=== PATIENT | female | born 1995 | race Caucasian/White ===

== ENCOUNTER 2022-11-22 16:53 | Emergency (ER) | payer OTHER, SELFPAY ==
[2022-11-22 17:10] VITALS: BP 137/81; PULSE 93; RESP 20; TEMP 37.2; O2SAT 100; BMI 42.3
--- NOTE | 2022-11-22 18:13 | ED_ITS ---
Documented by User: Gopi Abdullahi MD 11/22/22 18:16 HPI - Abdominal Pain General Chief Complaint: Abdominal Pain Stated Complaint: 19 weeks Time Seen by Provider: 11/22/22 17:17 Source: patient Mode of arrival: walk-in Limitations: no limitations History of Present Illness HPI narrative: this patient's here for evaluation of lower abdominal pain she is , she is approximately 19-1/2 weeks and is under the care of a local [employer] MAINFRAME DEVELOPER. She is not having any vaginal bleeding or spotting. She gets frequent pelvic ultrasounds because she herself has Sjogren syndrome. She has not had fever shakes or chills. She has no back pain. She has no history of ovarian cystic disease. She has another scheduled appointment in December to see her [employer] MAINFRAME DEVELOPER. She is concerned because in her last she had a urinary tract infection with possible kidney infection and never had any symptoms. Today she has no fever shakes or chills. She has no frequency urgency or dysuria, she correction says that she does have some increase in frequency. She's not seen any blood. She does not have a history kidney stone. Her discomfort is in the suprapubic area but she says it does not feel like false labor pain or labor pain at all. Related Data Allergies Allergy/AdvReac Type Severity Reaction Status Date / Time Penicillins Allergy Severe Rash Verified 11/22/22 17:17 [facility] Social History Smoking status: Never smoker Exam Narrative Exam Narrative: well-hydrated well-nourished female appears in no discomfort vital signs are stable she is afebrile. Skin is warm and dry no pallor or evidence of anemia and no diaphoresis. Respiratory she has no restaurant distress. No wheezes rales rhonchi or cou ghing. Abdomen soft and supple. No peritoneal findings. Extremities there is no edema. Constitutional Vital Signs, click to edit/add: Last Vital Signs Temp 98.9 F 11/22/22 17:10 Pulse 93 H 11/22/22 17:10 Resp 20 11/22/22 17:10 BP 137/81 H 11/22/22 17:10 Pulse Ox 100 11/22/22 17:10 Course Vital Signs Vital signs: Vital Signs Temperature 98.9 F 11/22/22 17:10 Pulse Rate 93 H 11/22/22 17:10 Respiratory Rate 20 11/22/22 17:10 Blood Pressure 137/81 H 11/22/22 17:10 Pulse Oximetry 100 11/22/22 17:10 Temperature 98.9 F 11/22/22 17:10 Pulse Rate 93 H 11/22/22 17:10 Respiratory Rate 20 11/22/22 17:10 Blood Pressure 137/81 H 11/22/22 17:10 Pulse Oximetry 100 11/22/22 17:10 MDM - Abdominal Pain MDM Narrative Medical decision making narrative: his patient's essentially here to make sure she does not have a urinary tract infection. She has had an uncomplicated intrauterine at 19-1/2 weeks. She has no vaginal bleeding or spotting. Her vital signs are essentially normal. Routine laboratory testing and a cathetered urinalysis are pending at time of this note. Lab Data Labs: Lab Results 11/22/22 11/22/22 Range/Units 18:15 18:16 WBC 7.8 (4.0-11.0) 10^3/uL RBC 4.44 (4.20-5.40) 10^6/uL Hgb 12.2 (12.0-16.0) g/dL Hct 38.1 (36.0-48.0) % MCV 85.8 (81.0-99.0) fL MCH 27.5 (26.7-34.0) pg MCHC 32.0 (29.9-35.2) g/dL RDW 14.0 (11.0-15.0) % Plt Count 224 (150-450) 10^3/uL MPV 10.8 (9.5-13.5) fL Neut % (Auto) 73.8 (43.0-75.0) % Lymph % (Auto) 18.5 L (20.5-60.0) % [place] % (Auto) 5.9 (1.7-12.0) % Eos % (Auto) 0.6 L (0.9-7.0) % Baso % (Auto) 0.4 (0.2-2.0) % Neut # (Auto) 5.8 (1.4-6.5) 10^3/uL Lymph # (Auto) 1.4 (1.2-3.8) 10^3/uL [place] # (Auto) 0.5 (0.3-0.8) 10^3/uL Eos # (Auto) 0.1 (0.0-0.7) 10^3/uL Baso # (Auto) 0.0 (0.0-0.1) 10^3/uL Abs Immat Gran (auto) 0.06 H (0.00-0.03) 10^3/uL Imm/Tot Granulo (auto) 0.8 H (0.0-0.5) % Sodium 138 (136-145) mmol/L Potassium 3.9 (3.5-5.1) mmol/L Chloride 104 (98-107) mmol/L Carbon Dioxide 25.7 (21.0-32.0) mmol/L Anion Gap 12.2 BUN 5.0 L (7.0-18.0) mg/dL Creatinine 0.61 (0.55-1.02) mg/dL Est GFR ( Amer) >60 (>=60) Est GFR (Non-Af Amer) >60 (>=60) BUN/Creatinine Ratio 8.2 Glucose 112 H (74-106) mg/dL Lactate 1.8 (0.4-2.0) mmol/L Calcium 9.1 (8.5-10.1) mg/dL Total Bilirubin 0.2 (0.2-1.0) mg/dL AST 17 (15-37) U/L ALT 24 (14-59) U/L Alkaline Phosphatase 86 (46-116) U/L Total Protein 6.9 (6.4-8.2) g/dL Albumin 3.0 L (3.4-5.0) g/dL Globulin 3.9 g/dL Albumin/Globulin Ratio 0.8 Lipase 48.0 L (73.0-393.0) U/L Urine Color Lt. yellow (YELLOW) Urine Clarity Clear (CLEAR) Urine pH 6.5 (5.0-9.0) Ur Specific [place] 1.020 (1.005-1.025) Urine Protein Negative (NEG/TRACE) mg/dL Urine Glucose (UA) Negative (NEGATIVE) mg/dL Urine Ketones Negative (NEGATIVE) mg/dL Urine Occult Blood Trace-i (NEGATIVE) Urine Nitrite Negative (NEGATIVE) Urine Bilirubin Negative (NEGATIVE) Urine Urobilinogen 0.2 (0.2-1.0) EU/dL Ur Leukocyte Esterase Negative (NEGATIVE) Urine RBC 5-10 A (0-2) #/HPF Urine WBC 2-5 A (NONE SEEN) #/HPF Ur Squamous Epith Cells Few A (NONE/RARE) #/LPF Urine Crystals None seen (None Seen) #/HPF Urine Bacteria Trace A (NONE SEEN) #/HPF Urine Casts None seen (NONE SEEN) #/LPF Urine Mucus Trace A (NONE SEEN) Ur Culture Indicated? No Discharge Plan Discharge Chief Complaint: Abdominal Pain Clinical Impression: Pelvic pain affecting in second trimester, antepartum Patient Disposition: Home, Self-Care Time of Disposition Decision: 19:52 Condition: Good Mode of Transportation: Private Vehicle Instructions: Abdominal Pain in (ED) Additional Instructions: Pelvic rest. Follow up with [employer] MAINFRAME DEVELOPER in the morning. Return to emergency department with any problems or concerns discussed. Stand Alone Forms: Portal Instructions Referrals: Physician,Non-Staff, MD [Primary Care Provider] - 1 week Documented by User: Summer Moore MD 11/22/22 20:02 HPI - Abdominal Pain General Chief Complaint: Abdominal Pain Stated Complaint: 19 weeks Time Seen by Provider: 11/22/22 17:17 Related Data Allergies Allergy/AdvReac Type Severity Reaction Status Date / Time Penicillins Allergy Severe Rash Verified 11/22/22 17:17 PFSH PFSH Social History Smoking status: Never smoker Exam Constitutional Vital Signs, click to edit/add: Last Vital Signs Temp 98.9 F 11/22/22 17:10 Pulse 93 H 11/22/22 17:10 Resp 20 11/22/22 17:10 BP 137/81 H 11/22/22 17:10 Pulse Ox 100 11/22/22 17:10 Course Vital Signs Vital signs: Vital Signs Temperature 98.9 F 11/22/22 17:10 Pulse Rate 93 H 11/22/22 17:10 Respiratory Rate 20 11/22/22 17:10 Blood Pressure 137/81 H 11/22/22 17:10 Pulse Oximetry 100 11/22/22 17:10 Temperature 98.9 F 11/22/22 17:10 Pulse Rate 93 H 11/22/22 17:10 Respiratory Rate 20 11/22/22 17:10 Blood Pressure 137/81 H 11/22/22 17:10 Pulse Oximetry 100 11/22/22 17:10 MDM - Abdominal Pain MDM Narrative Medical decision making narrative: his patient's essentially here to make sure she does not have a urinary tract infection. She has had an uncomplicated intrauterine at 19-1/2 weeks. She has no vaginal bleeding or spotting. Her vital signs are essentially normal. Routine laboratory testing and a cathetered urinalysis are pending at time of this note. Patient signed out to me by Dr. Gibbs at the end of his shift. Awaiting urinalysis results. Patient's abdomen is benign and nonsurgical. Patient was seen and evaluated by me. She does not have any vaginal bleeding, discharge. Urinalysis is unremarkable. There is no signs of infection. All results were discussed with patient. Patient advised pelvic rest, and follow-up with [employer] MAINFRAME DEVELOPER in the morning.Patient states she has been having diarrhea the last couple of days. She denies any melena, hematochezia. At this time the patient is without objective evidence of an acute process requiring hospitalization or inpatient management. The patient has remained hemodynamically stable. No additional indication for emergent studies at this time. I answered all questions. Discussed discharge instructions including stand aby anticipatory guidance and what should prompt a return to the emergency department, including if they get worse are not getting better or develops any new or concerning symptoms. I've given them specific time frame in which to follow-up, and who to follow-up with. The patient demonstrates understanding. Patient is nontoxic and stable for discharge with outpatient follow-up. This note was created with the assistance of a speech recognition program. Although the intention is to generate documents that actually reflects the content of the visit, no guarantees can be provided that every mistake has been identified and corrected by editing. Differential Diagnosis Differential diagnosis: Likely abdominal pain Lab Data Attestation: I reviewed the patient's lab results. Labs: Lab Results 11/22/22 11/22/22 Range/Units 18:15 18:16 WBC 7.8 (4.0-11.0) 10^3/uL RBC 4.44 (4.20-5.40) 10^6/uL Hgb 12.2 (12.0-16.0) g/dL Hct 38.1 (36.0-48.0) % MCV 85.8 (81.0-99.0) fL MCH 27.5 (26.7-34.0) pg MCHC 32.0 (29.9-35.2) g/dL RDW 14.0 (11.0-15.0) % Plt Count 224 (150-450) 10^3/uL MPV 10.8 (9.5-13.5) fL Neut % (Auto) 73.8 (43.0-75.0) % Lymph % (Auto) 18.5 L (20.5-60.0) % [place] % (Auto) 5.9 (1.7-12.0) % Eos % (Auto) 0.6 L (0.9-7.0) % Baso % (Auto) 0.4 (0.2-2.0) % Neut # (Auto) 5.8 (1.4-6.5) 10^3/uL Lymph # (Auto) 1.4 (1.2-3.8) 10^3/uL [place] # (Auto) 0.5 (0.3-0.8) 10^3/uL Eos # (Auto) 0.1 (0.0-0.7) 10^3/uL Baso # (Auto) 0.0 (0.0-0.1) 10^3/uL Abs Immat Gran (auto) 0.06 H (0.00-0.03) 10^3/uL Imm/Tot Granulo (auto) 0.8 H (0.0-0.5) % Sodium 138 (136-145) mmol/L Potassium 3.9 (3.5-5.1) mmol/L Chloride 104 (98-107) mmol/L Carbon Dioxide 25.7 (21.0-32.0) mmol/L Anion Gap 12.2 BUN 5.0 L (7.0-18.0) mg/dL Creatinine 0.61 (0.55-1.02) mg/dL Est GFR ( Amer) >60 (>=60) Est GFR (Non-Af Amer) >60 (>=60) BUN/Creatinine Ratio 8.2 Glucose 112 H (74-106) mg/dL Lactate 1.8 (0.4-2.0) mmol/L Calcium 9.1 (8.5-10.1) mg/dL Total Bilirubin 0.2 (0.2-1.0) mg/dL AST 17 (15-37) U/L ALT 24 (14-59) U/L Alkaline Phosphatase 86 (46-116) U/L Total Protein 6.9 (6.4-8.2) g/dL Albumin 3.0 L (3.4-5.0) g/dL Globulin 3.9 g/dL Albumin/Globulin Ratio 0.8 Lipase 48.0 L (73.0-393.0) U/L Urine Color Lt. yellow (YELLOW) Urine Clarity Clear (CLEAR) Urine pH 6.5 (5.0-9.0) Ur Specific [place] 1.020 (1.005-1.025) Urine Protein Negative (NEG/TRACE) mg/dL Urine Glucose (UA) Negative (NEGATIVE) mg/dL Urine Ketones Negative (NEGATIVE) mg/dL Urine Occult Blood Trace-i (NEGATIVE) Urine Nitrite Negative (NEGATIVE) Urine Bilirubin Negative (NEGATIVE) Urine Urobilinogen 0.2 (0.2-1.0) EU/dL Ur Leukocyte Esterase Negative (NEGATIVE) Urine RBC 5-10 A (0-2) #/HPF Urine WBC 2-5 A (NONE SEEN) #/HPF Ur Squamous Epith Cells Few A (NONE/RARE) #/LPF Urine Crystals None seen (None Seen) #/HPF Urine Bacteria Trace A (NONE SEEN) #/HPF Urine Casts None seen (NONE SEEN) #/LPF Urine Mucus Trace A (NONE SEEN) Ur Culture Indicated? No Discharge Plan Discharge Chief Complaint: Abdominal Pain Clinical Impression: Pelvic pain affecting in second trimester, antepartum Patient Disposition: Home, Self-Care Time of Disposition Decision: 19:52 Condition: Good Mode of Transportation: Private Vehicle Instructions: Abdominal Pain in (ED) Additional Instructions: Pelvic rest. Follow up with [employer] MAINFRAME DEVELOPER in the morning. Return to emergency department with any problems or concerns discussed. Stand Alone Forms: Portal Instructions Referrals: Physician,Non-Staff, [Primary Care Provider] - 1 week
[2022-11-22 18:35] LABS: Basophils Percent Auto 0.4 % (0.2-2.0); Eosinophils Absolute Auto 0.1 10^3/uL (0.0-0.7); Eosinophils Percent Auto 0.6 % (0.9-7.0); Hematocrit 38.1 % (36.0-48.0); Hemoglobin 12.2 g/dL (12.0-16.0); Immature Granulocytes Abs Auto 0.06 10^3/uL (0.00-0.03); Immature Granulocytes Pct Auto 0.8 % (0.0-0.5); Lymphocytes Absolute Auto 1.4 10^3/uL (1.2-3.8); Lymphocytes Percent Auto 18.5 % (20.5-60.0); Mean Corpuscular Hemoglobin 27.5 pg (26.7-34.0); Mean Corpuscular Volume 85.8 fL (81.0-99.0); Mean Platelet Volume 10.8 fL (9.5-13.5); Monocytes Absolute Auto 0.5 10^3/uL (0.3-0.8); Monocytes Percent Auto 5.9 % (1.7-12.0); Neutrophils Absolute Auto 5.8 10^3/uL (1.4-6.5); Neutrophils Percent Auto 73.8 % (43.0-75.0); Platelet Count 224 10^3/uL (150-450); Red Blood Count 4.44 10^6/uL (4.20-5.40); White Blood Count 7.8 10^3/uL (4.0-11.0)
[2022-11-22 18:45] LABS: Lactate/Lactic Acid 1.8 mmol/L (0.4-2.0)
[2022-11-22 18:55] LABS: Alanine Aminotransferase 24 U/L (14-59); Albumin Globulin Ratio 0.8; Alkaline Phosphatase 86 U/L (46-116); Anion Gap 12.2; Aspartate Amino Transferase 17 U/L (15-37); BUN Creatinine Ratio 8.2; Bilirubin Total 0.2 mg/dL (0.2-1.0); Calcium 9.1 mg/dL (8.5-10.1); Carbon Dioxide 25.7 mmol/L (21.0-32.0); Chloride 104 mmol/L (98-107); Estimated GFR (African America >60 (>=60); Estimated GFR (Non-African Ame >60 (>=60); Globulin 3.9 g/dL; Glucose 112 mg/dL (74-106); Potassium 3.9 mmol/L (3.5-5.1); Sodium 138 mmol/L (136-145); Total Protein 6.9 g/dL (6.4-8.2)
[2022-11-22 19:36] LABS: Bilirubin Urine NEGATIVE (NEGATIVE); Blood Urine TRACE-I (NEGATIVE); Clarity Urine CLEAR (CLEAR); Color Urine LT. YELLOW (YELLOW); Glucose Urine UA NEGATIVE (NEGATIVE); Ketones Urine NEGATIVE (NEGATIVE); Leukocyte Esterase Urine NEGATIVE (NEGATIVE); Nitrite Urine NEGATIVE (NEGATIVE); Protein Urine NEGATIVE (NEG/TRACE); Urine Microscopic Indicated YES; Urobilinogen Urine 0.2 EU/dL (0.2-1.0); pH Urine 6.5 (5.0-9.0)
[2022-11-22 19:48] LABS: Bacteria Urine TRACE #/HPF (NONE SEEN); Mucus Urine TRACE (NONE SEEN); Squamous Epithelial Cell Urine FEW #/LPF (NONE/RARE)
[2022-11-22 19:49] LABS: Cast Seen? NONE SEEN #/LPF (NONE SEEN); Crystals Seen? None Seen #/HPF (None Seen); Urine Culture Indicated NO
== END 2022-11-22 20:26 | disposition home or self-care (01) ==
PROVIDERS: Physician Assistant; Emergency Provider Emergency Medicine
DX: O99.892 Other specified diseases and conditions complicating childbirth (principal); R10.2 Pelvic and perineal pain; M35.00 Sjogren syndrome, unspecified; Z3A.19 19 weeks gestation of pregnancy; Z87.440 Personal history of urinary (tract) infections
CPT/HCPCS: 36415; 80053; 81003; 81015; 83605; 83690; 85025; 99284

== ENCOUNTER 2022-12-06 20:07 | Emergency (ER) | payer OTHER, SELFPAY ==
[2022-12-06] VITALS (19 sets, daily range): BP systolic 121–134; BP diastolic 70–98; PULSE 79–96; RESP 10–27; TEMP 36.6; O2SAT 75–100; BMI 42.3
--- NOTE | 2022-12-06 20:27 | ECG_ITS ---
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
--- NOTE | 2022-12-06 20:29 | ED.SOB1 ---
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 She was recently seen by maternal medicine in [place] who ordered an EKG and an echocardiogram for her. She states she is high risk because she has an immune deficiency/Sjogren's syndrome. She is not having any abdominal pain or vaginal bleeding. She denies nausea or vomiting. She states she occasionally has episodes of nausea but has mostly resolved. She denies any fever or cough. She is not a smoker. She has no lower extremity pain or swelling. She denies any chest pain but states at times her chest feels tight. She has no back pain, jaw pain or arm pain. MD elicited complaint: shortness of breath Related Data Home Medications Medication Instructions Recorded Confirmed albuterol sulfate 90 mcg/actuation 1 inh inhalation Q6H 12/06/22 12/06/22 breath activated powder inhaler aspirin 81 mg capsule 81 mg PO DAILY 12/06/22 12/06/22 ondansetron HCl 4 mg tablet 4 mg PO Q8H 12/06/22 12/06/22 Allergies Allergy/AdvReac Type Severity Reaction Status Date / Time Penicillins Allergy Severe Rash Verified 11/22/22 17:17 Review of Systems ROS Status of ROS 10 or more systems reviewed and unremarkable except as noted in history and below PFSH [facility] Social History Smoking status: Never smoker Exam Narrative Exam Narrative: Nurses note and vital signs reviewed and patient is not hypoxic. Blood pressure is mildly elevated at 134/98 General: Overweight female resting currently on the stretcher, she moves about the stretcher easily without any notable exertional dyspnea or conversational dyspnea Skin: Warm, dry, no pallor noted. There is no rash noted. Head: Normocephalic, atraumatic Eye: Normal conjunctiva, no drainage, EOMI. PERRL Ears, Nose, Mouth, and Throat: oral mucosa is moist. Cardiovascular: Regular Rate and Rhythm S1 and S2 no murmurs rubs or gallops Respiratory: Patient is in no distress, no accessory muscle use, lungs are clear to auscultation, no wheezing, rales or rhonchi Back: non-tender, no CVA tenderness bilaterally to percussion. GI: Normal bowel sounds, Obese, soft, no reproducible tenderness, heart rate was auscultated with the Doppler Musculoskeletal: The patient has no evidence of calf tenderness, no pitting edema, symmetrical pulses noted bilaterally Neurological: A&O x4, normal speech Psychiatric: Cooperative Constitutional Vital Signs, click to edit/add: Last Vital Signs Temp 97.8 F 12/06/22 20:10 Pulse 89 12/06/22 20:10 Resp 20 12/06/22 20:10 BP 134/98 H 12/06/22 20:10 Pulse Ox 98 12/06/22 20:10 O2 Del Method Room Air 12/06/22 20:10 Course Vital Signs Vital signs: Vital Signs Temperature 97.8 F 12/06/22 20:10 Pulse Rate 89 12/06/22 20:10 Respiratory Rate 20 12/06/22 20:10 Blood Pressure 134/98 H 12/06/22 20:10 Pulse Oximetry 98 12/06/22 20:10 Oxygen Delivery Method Room Air 12/06/22 20:10 Temperature 97.8 F 12/06/22 20:10 Pulse Rate 89 12/06/22 20:10 Respiratory Rate 20 12/06/22 20:10 Blood Pressure 134/98 H 12/06/22 20:10 Pulse Oximetry 98 12/06/22 20:10 Oxygen Delivery Method Room Air 12/06/22 20:10 MDM - SOB/Dyspnea MDM Narrative Medical decision making narrative: This 27-year-old female who is approximately 21 weeks was referred to the emergency department by her dip filler for evaluation of exertional shortness of breath and chest tightness at times. She has had this in prior pregnancies but not this early. She is noted to be obese at baseline. She is not having any abdominal pain. She has no lower extremity pain or swelling. She states she does have Sjogren syndrome antibodies and is at high risk in this . She was seen by maternal medicine in [place] and an EKG and echocardiogram was ordered which she has not had yet. She was referred to this emergency department for further evaluation and treatment. Her vital signs are stable. heart rate is normal. Her lung exam is normal with no wheezing, rhonchi or rales. EKG is sinus rhythm with sinus arrythmia at 87 bpm. Routine labs are reviewed and are normal. She does have an elevated d-dimer at 3.81. I explained to her at the time of my history and physical that she would likely have an elevated d-dimer both because she has Sjogren syndrome and also because she is and if the d-dimer is elevated we would likely order a CT of the chest to rule out PE. She verbalized understanding of this. She received a liter of normal saline as I thought she may be somewhat dehydrated due to the heat and her . She was taken to CT scan and read the risk panel and refused to sign consent and was returned to her room. I discussed with her what her fears were and she stated that she did not want to expose the unborn baby to radiation. She was given copies of her troponin and d-dimer to share with her physician. I suggested that she return to the emergency department if she changes her mind, if she has worsening chest pain, shortness of breath dizziness palpitations or any concerns. She is in agreement with this plan and signed out against medical advice verbalizing understanding of the risks of undiagnosed pulmonary embolism including cardiovascular collapse, and permanent disability. Lab Data Labs: Lab Results 12/06/22 Range/Units 20:30 WBC 8.5 (4.0-11.0) 10^3/uL RBC 4.12 L (4.20-5.40) 10^6/uL Hgb 11.4 L (12.0-16.0) g/dL Hct 35.3 L (36.0-48.0) % MCV 85.7 (81.0-99.0) fL MCH 27.7 (26.7-34.0) pg MCHC 32.3 (29.9-35.2) g/dL RDW 15.1 H (11.0-15.0) % Plt Count 186 (150-450) 10^3/uL MPV 11.1 (9.5-13.5) fL Neut % (Auto) 49.2 (43.0-75.0) % Lymph % (Auto) 43.6 (20.5-60.0) % [place] % (Auto) 5.3 (1.7-12.0) % Eos % (Auto) 0.6 L (0.9-7.0) % Baso % (Auto) 0.6 (0.2-2.0) % Neut # (Auto) 4.2 (1.4-6.5) 10^3/uL Lymph # (Auto) 3.7 (1.2-3.8) 10^3/uL [place] # (Auto) 0.5 (0.3-0.8) 10^3/uL Eos # (Auto) 0.1 (0.0-0.7) 10^3/uL Baso # (Auto) 0.1 (0.0-0.1) 10^3/uL Abs Immat Gran (auto) 0.06 H (0.00-0.03) 10^3/uL Imm/Tot Granulo (auto) 0.7 H (0.0-0.5) % D-Dimer 3.81 H* (<=0.59) mg/L FEU Sodium 139 (136-145) mmol/L Potassium 4.0 (3.5-5.1) mmol/L Chloride 105 (98-107) mmol/L Carbon Dioxide 25.3 (21.0-32.0) mmol/L Anion Gap 12.7 BUN 5.0 L (7.0-18.0) mg/dL Creatinine 0.76 (0.55-1.02) mg/dL Est GFR ( Amer) >60 (>=60) Est GFR (Non-Af Amer) >60 (>=60) BUN/Creatinine Ratio 6.6 Glucose 103 (74-106) mg/dL Calcium 8.5 (8.5-10.1) mg/dL Total Bilirubin 0.3 (0.2-1.0) mg/dL AST 29 (15-37) U/L ALT 44 (14-59) U/L Alkaline Phosphatase 99 (46-116) U/L Troponin I High Sens <4.0 L (4.0-51.3) pg/mL Total Protein 6.6 (6.4-8.2) g/dL Albumin 3.0 L (3.4-5.0) g/dL Globulin 3.6 g/dL Albumin/Globulin Ratio 0.8 ECG Data Attestation: I personally reviewed and interpreted this ECG as follows: (Sinus and was sinus arrhythmia at 87 beats for minute, normal axis, normal intervals, no acute ST segment elevation or T-wave inversion,) Discharge Plan Discharge Chief Complaint: Shortness of Breath/Dyspnea Clinical Impression: Exertional shortness of breath, D-dimer, elevated, Second trimester Patient Disposition: Left Against Medical Advice Time of Disposition Decision: 22:59 Condition: Good Prescriptions / Home Meds: No Action aspirin 81 mg capsule 81 mg PO DAILY ondansetron HCl 4 mg tablet 4 mg PO Q8H albuterol sulfate 90 mcg/actuation aerosol powdr breath activated 1 inh inhalation Q6H Stand Alone Forms: Portal Instructions Referrals: Physician,Non-Staff, MD [Primary Care Provider] - 1 week
[2022-12-06] MEDS: 0.9 % SODIUM CHLORIDE 1,000 ML 1000 ML IV (20:44)
[2022-12-06 21:16] LABS: Basophils Absolute Auto 0.1 10^3/uL (0.0-0.1); Basophils Percent Auto 0.6 % (0.2-2.0); Eosinophils Absolute Auto 0.1 10^3/uL (0.0-0.7); Eosinophils Percent Auto 0.6 % (0.9-7.0); Hematocrit 35.3 % (36.0-48.0); Hemoglobin 11.4 g/dL (12.0-16.0); Immature Granulocytes Abs Auto 0.06 10^3/uL (0.00-0.03); Immature Granulocytes Pct Auto 0.7 % (0.0-0.5); Lymphocytes Absolute Auto 3.7 10^3/uL (1.2-3.8); Lymphocytes Percent Auto 43.6 % (20.5-60.0); Mean Corpuscular HGB Conc 32.3 g/dL (29.9-35.2); Mean Corpuscular Hemoglobin 27.7 pg (26.7-34.0); Mean Corpuscular Volume 85.7 fL (81.0-99.0); Mean Platelet Volume 11.1 fL (9.5-13.5); Monocytes Absolute Auto 0.5 10^3/uL (0.3-0.8); Monocytes Percent Auto 5.3 % (1.7-12.0); Neutrophils Absolute Auto 4.2 10^3/uL (1.4-6.5); Neutrophils Percent Auto 49.2 % (43.0-75.0); Platelet Count 186 10^3/uL (150-450); Red Blood Count 4.12 10^6/uL (4.20-5.40); Red Cell Distribution Width 15.1 % (11.0-15.0); White Blood Count 8.5 10^3/uL (4.0-11.0)
[2022-12-06 21:45] LABS: Alanine Aminotransferase 44 U/L (14-59); Albumin Globulin Ratio 0.8; Alkaline Phosphatase 99 U/L (46-116); Anion Gap 12.7; Aspartate Amino Transferase 29 U/L (15-37); BUN Creatinine Ratio 6.6; Bilirubin Total 0.3 mg/dL (0.2-1.0); Calcium 8.5 mg/dL (8.5-10.1); Carbon Dioxide 25.3 mmol/L (21.0-32.0); Chloride 105 mmol/L (98-107); Estimated GFR (African America >60 (>=60); Estimated GFR (Non-African Ame >60 (>=60); Globulin 3.6 g/dL; Glucose 103 mg/dL (74-106); Sodium 139 mmol/L (136-145); Total Protein 6.6 g/dL (6.4-8.2); Troponin I High Sensitivity <4.0 pg/mL (4.0-51.3)
[2022-12-06 21:57] LABS: D Dimer 3.81 mg/L FEU (<=0.59)
== END 2022-12-06 23:06 | disposition left against medical advice (07) ==
PROVIDERS: Emergency Provider Emergency Medicine
DX: O26.892 Other specified pregnancy related conditions, second trimester (principal); R06.02 Shortness of breath; R79.89 Other specified abnormal findings of blood chemistry; M35.00 Sjogren syndrome, unspecified; O99.212 Obesity complicating pregnancy, second trimester; Z3A.21 21 weeks gestation of pregnancy
CPT/HCPCS: 36415; 80053; 84484; 85025; 85378; 93005; 96360; 99284

== ENCOUNTER 2023-01-09 01:41 | Observation (INO) | payer MEDICAID, SELFPAY ==
[2023-01-09 02:00] VITALS: RESP 18; TEMP 36.8
[2023-01-09 02:02] VITALS: BP 139/89; PULSE 101; RESP 16
[2023-01-09 02:02] LABS: Amnisure POSITIVE (NEGATIVE); Bilirubin Urine NEGATIVE (NEGATIVE); Blood Urine MODERATE (NEGATIVE); Clarity Urine CLEAR (CLEAR); Color Urine BROWN (YELLOW); Glucose Urine UA NEGATIVE (NEGATIVE); Ketones Urine NEGATIVE (NEGATIVE); Leukocyte Esterase Urine MODERATE (NEGATIVE); Nitrite Urine NEGATIVE (NEGATIVE); Protein Urine >=300 mg/dL (NEG/TRACE); Specific Gravity Urine 1.025 (1.005-1.025); Urobilinogen Urine 0.2 EU/dL (0.2-1.0)
[2023-01-09 02:13] LABS: Urine Microscopic Indicated YES
[2023-01-09 02:17] LABS: Bacteria Urine LARGE #/HPF (NONE SEEN); Cast Seen? SEEN #/LPF (NONE SEEN); Crystals Seen? None Seen #/HPF (None Seen); Fine Granular Casts Urine FEW; Mucus Urine SMALL (NONE SEEN); RBC Urine 0-2 #/HPF (0-2); Squamous Epithelial Cell Urine MANY #/LPF (NONE/RARE); Urine Culture Indicated YES
[2023-01-09] MEDS: LACTATED RINGER'S SOLUTION 1,000 ML 125 ML IV (02:20)
[2023-01-09] MEDS: BETAMETHASONE ACE/BETAMETHASONE SOD PHOS 30 MG/5 ML 12 MG IM (02:23)
--- NOTE | 2023-01-09 03:00 | P.OBLDTN_ITS ---
OB - Triage/Final Diagnosis Visit Information Date of evaluation: 01/09/23 Reason for evaluation: other Comments/Additional reasons for admission: rupture of membranes Evaluation Cervical dilation (cm): 0 Laboratory results: Laboratory Tests 01/09/23 01:58 Urine Color Brown A Urine Clarity Clear Urine pH 7.0 Ur Specific [place] 1.025 Urine Protein >=300 A Urine Glucose (UA) Negative Urine Ketones Negative Urine Occult Blood Moderate A Urine Nitrite Negative Urine Bilirubin Negative Urine Urobilinogen 0.2 Ur Leukocyte Esterase Moderate A Urine RBC 0-2 Urine WBC 5-10 A Ur Squamous Epith Cells Many A Urine Crystals None seen Urine Bacteria Large A Urine Casts Seen A Fine Granular Casts Few Urine Mucus Small A Ur Culture Indicated? 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 I directed her to go to [facility] as she stated she was not in pain nor having contractions, only mild cramping off and on. I arrived at the hospital to assess patient. Per nursing exam, + rupture of membranes, amniosure positive, SVE fingertip/funneling but no dilation. heart tones stable at 130-140's. Orders given for IV bolus, Celestone 12 mg IM, and Clindamycin 900 mg IVP as patient is allergic to PCNs. Called [facility], spoke with Dr Palafox, report given, and he accepts transport and care of patient. Will also start Magnesium sulfate at 6gm bolus and 2 gm maintenance. transport team states they will be here at approximately 0[address]. [address] Ng-collaborating physician called per this CNM and report given and reported I would manage patient and her transport to [facility]. No new orders received.
[2023-01-09] MEDS: 0.9 % SODIUM CHLORIDE 1,000 ML 75 ML IV (03:45)
[2023-01-09] MEDS: MAGNESIUM SULFATE IN WATER 40 GM/1,000 ML IV.SOLN IV (03:45)
[2023-01-09] MEDS: CLINDAMYCIN PHOSPHATE/D5W 900 MG/50 ML PIGGYBACK 100 MG IV (04:39)
== END 2023-01-09 04:30 | disposition short-term general hospital (02) ==
PROVIDERS: Admitting Provider Midwife; Visit Provider Midwife
DX: O42.912 Preterm premature rupture of membranes, unspecified as to length of time between rupture and onset of labor, second trimester (principal); O34.219 Maternal care for unspecified type scar from previous cesarean delivery; O99.891 Other specified diseases and conditions complicating pregnancy; M35.00 Sjogren syndrome, unspecified; Z3A.25 25 weeks gestation of pregnancy
CPT/HCPCS: 51702; 59025; 81001; 84112; 87086; 96372; 96374; 96375; G0378; G0379; J0702

== ENCOUNTER 2025-02-03 13:32 | Outpatient (OUT) | payer OTHER, SELFPAY ==
--- OUTSIDE RECORDS SUMMARY | 2025-01-20 14:30 | XMS_ITS | Encounter Summary ---
[facility] tem Address [id number] [address] [place] [address] Care Team Providers Care Stone Operator Name Role Phone Kassie Pereira APRN-FILM OR VIDEOTAPE EDITOR Primary Care Provide r Reason for Referral * Rehabilitation - Outpatient (Routine) - Authorized Specialty Diagnoses / Procedures Referred By Nando apodaca Referred To Contact Rehabilitation Diagnoses Morbid obesity ([facility]) Fatigue, unspecified type Fanta Asencio MD [address] [place] [address] Phone: tel: fax: [facility] [address] [place] [address] Phone: tel: fax: Referral ID Status Reason Start Date Expiration Date Visits Requested Visits Authorized [id number] Authorized Specialty Services Required 01/20/2025 07/20/2025 12 12 * Diagnostic Imaging (Routine) - Pending Review Specialty Diagnoses / Procedures Referred By Nando apodaca Referred To Contact Diagnoses Morbid obesity ([facility]) Preop testing Procedures Fluoroscopy upper GI with esophagus Fanta Asencio MD [address] [place] [address] Phone: tel: fax: Referral ID Status Reason Start Date Expiration Date V isits Requested Visits Authorized [id number] Pending Review 01/20/2025 01/20/2026 1 1 * Consultation (Routine) - Pending Review Specialty Diagnoses / Procedures Referred By Nando t Referred To Contact Nutrition Diagnoses Morbid obesity ([facility]) Pre-bariatric surgery nutrition evaluation Fanta Asencio MD [address] [place] [address] Phone: tel: fax: Referral ID Status Reason Start Date Expiration Date Visits Requested Visits Authorized [id number] Pending Review Specialty Services Required 01/20/2025 01/20/2026 12 12 Reason for Visit * Consultation (Routine) - Canceled Specialty Diagnoses / Procedures Referred By Nando t Referred To Contact Bariatrics Diagnoses BMI 40.0-44.9, adult ([facility]) Kassie Pereira, ASSISTANT PROFESSOR OF PSYCHOLOGY-FILM OR VIDEOTAPE EDITOR [address] [place] [address] Phone: tel: fax: Fanta Asencio MD [address] [place] [address] Phone: tel: fax: Referral ID Status Reason Start Date Expiration Date Visits Requested Visits Authorized [id number] Canceled Specialty Services Required 01/06/2025 01/06/2026 1 1 Encounter Details Date Type Department Care Team (Late st Contact Info) Description 01/20/2025 2:30 PM EDT Office Visit [facility] [address] [place] [phone] Fanta Asencio MD [address] [place], [place] [phone] Morbid obesity ([facility]) (Primary Dx); BMI 40.0-44.9, adult ([facility]); Fatigue, unspecified type; Pre-bariatric surgery nutrition evaluation; Preop testing Social History Tobacco Use Types Packs/Day Years Used Date Smoking Tobacco: Former Vaping/E-cigarettes Quit: 2021 Smokeless Tobacco: Never Alcohol Use Standard Drinks/Week Comments Not Currently 0 (1 standard drink = 0.6 oz pur e alcohol) [facility] Utilities Answer Date Recorded In the past 12 months has th e electric, gas, oil, or water company threatened to shut off services in your home? No 09/11/2023 Overall Financial Resource Strain (CARDIA) Answe r Date Recorded How hard is it for you to pa y for the very basics like food, housing, medical care, and heating? Not hard at all 12/27/2022 PHQ-2 Answer Date Recorded Total Score 0 01/06/2025 PRAPARE - Transportation Answer Date Re corded In the past 12 months, has l ack of transportation kept you from medical appointments or from getting medications? No 12/2023 In the past 12 months, has l ack of transportation kept you from meetings, work, or from getting things needed for daily living? No 09/11/2023 [place] Depression Scale Answer Date Recorded [place] Depression Scale Total 6 04/03/2023 The thought of harming myself has occurred to me . Never 04/03/2023 Housing Instability Answer Date Recorde d Are you worried or concerned that in the next two months you may not have stable housing that you own, rent or stay in as a part of a household? No 09/11/2023 Childcare Answer Date Recorded Childcare Unknown 10/15/2018 Employment Answer Date Recorded Employment Unknown 10/15/2018 Hunger Screening Answer Date Recorded Within the past 12 months we worried whether our food would run out before we got money to buy more. Never True 01/11/2025 Within the past 12 months th e food we bought just didn't last and we didn't have money to get more. Never True 01/11/2025 Purpose - Life Answer Date Recorded Purpose and direction in life Unknown Comments No Sex and Gender Information Value Date Recorded Sex Assigned at Not on file Legal Sex Female 11:52 AM EDT Gender Identity Female 09/11/2023 6:37 PM EDT Sexual Orientation Straight 09/11/2023 6: 37 PM EDT documented as of this encounter Last Filed Vital Signs Vital Sign Reading Time Taken Comments Blood Pressure 139/87 01/20/2025 2:00 PM EDT Pulse 99 01/20/2025 2:00 PM EDT Temperature - - Respiratory Rate - - Oxygen Saturation - - Inhaled Oxygen Concentration - - Weight 121.1 kg (266 lb 14.4 oz) 01/20/2025 2:00 PM EDT Height 165.6 cm (5' 5.2 ) 01/20/2025 2:00 PM EDT Body Mass Index 44.14 01/20/2025 2:00 PM EDT documented in this encounter Progress Notes * Fanta Asencio MD - 01/20/2025 2:30 PM EDT [facility] GENERAL SURGERY-BARIATRIC [address] [place] [phone] [facility] SURGICAL WEIGHT LOSS PROGRAM INITIAL EVALUATION Patient: Norma Gonzalez Service Date: 01/20/2025 HPI: The patient is here to discuss surgical weight loss options. Patient has tried to lose weight by conventional means of diet and physical activity but cannot keep weight off. Patient will begin our dietary evaluation process and psychological evaluation and return to me to discuss Sleeve gastrectomyas a tool for weight loss and also is aware that surgery is the last resort for weight loss. Patient also understands the importance of vitamins for life, need of physical activity, behavior education about food and nutritional habits, follow up requirements and participation in our support groups.Benefits, risks and alternatives of sleeve gastrectomy were discussed. Patient has family support an d would like to proceed. Chief complaint. Obesity The patient is a 29 y.o. year old female with morbid obesity, who stands Height: 165.6 cm (5' 5.2 )tall with a weight of Weight: 121.1 kg (266 lb 14.4 oz) , resulting in a BMI of Body mass index is 44.14 kg/m??.. The patient suffers from comorbidities as a result of morbid obesity, including: Kneepain, Back pain, GERD, Insulin Resistance, and Asthma. She has suffered from obesity for many years, with their heaviest weight being her current weight. The patient has failed multiple attempts at non-surgical weight loss, and is now seeking surgical intervention to promote permanent and consistent weight loss. She has chosen Robotic Laparoscopic or Open Sleeve Gastrectomy. She is well educated regarding it, as she has recently viewed our weight loss surgery informational seminar. The patient has struggled with her weight ever since she was young, but more so since she went through her pregnancies. She has tried dieting without any successful weight loss. She is not a candidate for GLP 1 medications due to a family history of medullary thyroid cancer. Her primary care doctorrecommended she look into bariatric surgery. She has a few friends who have had surgery but she hasnot discussed it with them. She has a history of laparoscopic appendectomy and C-sections through Pfannenstiel incision. She developed GERD after her last . It is well- controlled with daily omeprazole. Medical History: Past Medical History: Diagnosis Date Anxiety Asthma COVID-19 01/31/2021 Depression Fibromyalgia, primary Migraine Pneumonia Sjogren's syndrome SS-B antibody positive Visual impairment Surgical History: Past Surgical History: Procedure Laterality Date N/A 06/18/2019 Performed by Estephania Bell MD at [facility] OR REPEAT TUBAL LIGATION N/A 03/05/2023 Performed by Radhika Dang DO at [facility] OR LAPAROSCOPIC APPENDECTOMY N/A 09/12/2023 Performed by Reji Nascimento MD at [facility] Family History: Family History Problem Relation Age of Onset Lupus Mother Diabetes Mother Heart disease Mother Chiari malformation Father Social History: Social History Tobacco Use Smoking status: Former Types: Vaping/E-cigarettes Quit date: 2021 Years since quittin.7 Smokeless tobacco: Never Vaping Use Vaping status: Former Substance Use Topics Alcohol use: Not Currently Drug use: Never Current Med List: Current Outpatient Medications: omeprazole (PriLOSEC) 20 mg capsule, Take 1 capsule (20 mg total) by mouth in the morning., Disp: 90 capsule, Rfl: 1 albuterol (PROVENTIL HFA;VENTOLIN HFA) 90 mcg/actuation inhaler, Inhale 2 puffs every 6 (six) hoursas needed for wheezing. (Patient not taking: Reported on 01/20/2025), Disp: 18 g, Rfl: 2 dicyclomine (BENTYL) 20 mg tablet, Take 1 tablet (20 mg total) by mouth in the morning and 1 tablet(20 mg total) before bedtime. (Patient not taking: Reported on 01/06/2025), Disp: 30 tablet, Rfl: 0 methocarbamoL (ROBAXIN) 500 mg tablet, Take 1 tablet (500 mg total) by mouth 2 (two) times a day asneeded for muscle spasms (back pain). (Patient not taking: Reported on 01/20/2025), Disp: 20 tablet,Rfl: 0 SOCIAL: This patient is Presenting alone for the evaluation today. Their functional status is independent. Comprehension Ability to grasp concepts and respond to questions: [x] High [] Medium [] Low Motivation [x] Asks Questions; eager to learn [x] Needs education [] Extreme anxiety [] uncooperative [] Denies need for education REVIEW OF SYSTEMS: Do you feel sleepy during the day? [x] Yes [] No Do you get short of breath when walking up two flights of stairs? [x] Yes [] No Do you get chest pains when walking up two flights of stairs? [] Yes [x] No Do you suffer from back pain? [x] Yes [] No Do you suffer from knee pain? [x] Yes [] No Do you or have you had any of the following? Cardiovascular YES NO Respiratory YES NO High Blood Pressure [] [x] COPD [] [x] Heart Attack [] [x] TB/Positive skin Test [] [x] Congestive Heart Failure [] [x] Obstructive Sleep Apnea [] [x] Coronary Artery Disease [] [x] Asthma [x] [] Circulation Problems [] [x] Activity Intolerance [x] [] Gastrointestinal YES NO Peripheral Vascular Disease [] [x] Gastric Problems [] [x] Colorectal problems [] [x] Hematological YES NO Ulcer disease [] [x] Bleeding Tendencies [] [x] Liver disease [] [x] Blood Transfusion last 30d [] [x] Gallstones [] [x] Anemia [] [x] Refulx or Heartburn [x] [] Blood Clots [] [x] High Cholesterol [] [x] Muscoloskeletal YES NO High Triglycerides [] [x] Joint Limitations [] [x] Muscle Weakness [] [x] Eyes, Ears, Nose, Throat YES NO Multiple Sclerosis [] [x] Cataracts [] [x] Arthritis [] [x] Glasses [] [x] Blurred Vision [] [x] Cancer [] [x] Hearing Aids [] [x] Type: Ringing in Ears [] [x] Difficulty Swallowing [] [x] Encodrine YES NO Diabetes [] [x] Neurological YES NO Thyroid [] [x] Stroke [] [x] Seizure [] [x] Psychiatric Disorder YES NO Dizziness/Blackouts/Fainting [] [x] Depression [] [x] Memory Impairement [] [x] Bipolar [] [x] Parkinson's [] [x] Anxiety disorder [] [x] Genitourinary/Pr Manager YES NO Skin Intact [x] [] Urinary Infection [] [x] Stones [] [x] Sleep YES NO Kidney Disease [] [x] Excessive daytime sleepiness [x] [] Incontinent [] [x] Snoring [x] [] Irregular menstrual cycles [] [] Unrefreshed sleep [x] [] Possibly ? [] [] Other: Date of LMP: Preferred location: PREVIOUS ANESTHESIA Has any family member had a problem with anesthesia in the past? [x] No [] Yes If yes, describe: Have you had a problem with anesthesia in the past? [x] No [] Yes If yes, describe: Do you have any difficulty moving your head [id number]? [x] No [] Yes Do you have difficulty opening or closing your jaw? [x] No [] Yes PRESENT ILLNESS: Weight Parameters Initial Bariatric Consult 01/20/2025 Weight: 121.1 kg (266 lb 14.4 oz) Height: 165.6 cm (5' 5.2 ) Body mass index is 44.14 kg/m??. IMMUNIZATION STATUS Immunization History Administered Date(s) Administered DTP / HiB 06/23/1996 DTaP, Unspecified 09/08/1996, 02/23/1997, 03/25/1998, 07/26/2000 Hep B, Adjuvanted 03/25/2024 Hep B, Adolescent or Pediatric 1995, 06/23/1996, 09/08/1996 HiB 09/08/1996, 02/23/1997, 03/25/1998 IPV 07/26/2000 MMR 02/23/1997, 07/26/2000 OPV 06/23/1996, 09/08/1996, 02/23/1997 Tdap 01/06/2015, 11/15/2016, 04/27/2019, 01/26/2023 Varicella 03/27/1999 FALLS ASSESSMENT [x] LOW RISK FOR FALLS [] MODERATE RISK FOR FALLS [] Difficulty walking/selfcare [] Falls in the past 2 months [] Suspicion of Clinician [] Other: SMOKING CESSATION [x] Not needed [] Instructed to stop smoking [] Referred to [facility] Nicotine cessation program VTE SCREEN [] Family hx DVT/PE / [] Personal hx of DVT/PE [x] Denies any family or personal hx of DVT/PE Physician Review [x] Past medical, family, & social history reviewed and discussed with patient. Review of surgery and post-surgical changes (by surgeon for surgical patients only) [x] Lifelong diet expectations reviewed with patient [x] Need for lifelong vitamin supplementation reviewed with patient [x] Physical activity [x] Portion control PHYSICAL EXAMINATION: BP 139/87 (BP Site: Left Arm, BP Postition: Sitting, BP CUFF SIZE: M (9-13 inches)) Pulse 99 Ht165.6 cm (5' 5.2 ) Wt 121.1 kg (266 lb 14.4 oz) BMI 44.14 kg/m?? General Appearance: Alert, cooperative, no distress, appears stated age Head: Normocephalic, without obvious abnormality, atraumatic Eyes: No scleral icterus Ears: Normal external ear, both ears Nose: Nares normal, septum midline Throat: Lips, mucosa normal Neck: Supple, symmetrical, trachea midline Lungs: Respirations unlabored Chest Wall: No tenderness or deformity Heart: Regular rate Breast Exam: Deferred. Abdomen: Soft, non-tender, nondistended, Pfannenstiel and lap sites well healed, no palpable hernia Genitalia: Deferred. Rectal: Deferred. Extremities: Extremities normal, atraumatic, no cyanosis or edema Skin: Skin color, texture, turgor normal, no rashes or lesions Neurologic: heel sander rubber intact, normal strength. Alert and oriented. Follows commands and moves all 4. BP 139/87 (BP Site: Left Arm, BP Postition: Sitting, BP CUFF SIZE: M (9-13 inches)) Pulse 99 Ht165.6 cm (5' 5.2 ) Wt 121.1 kg (266 lb 14.4 oz) BMI 44.14 kg/m?? Physical Exam RECOMMENDATIONS: We spent a great deal of time discussing the risks and benefits of Robotic Laparoscopic or Open Sleeve Gastrectomy, and we discussed the need for post- operative visit compliance, behavior modifications and diet changes, protein and vitamin supplementation, as well as routine scheduled and dedicatedexercise. We discussed the potential weight loss benefit of approximately 60-70% of her excess bodyweight at 12-18 months post-op, as well as the possibility of insufficient weight loss or weight gain after 2 years post-operative time. Upon completion of all required pre-operative testing we will submit for insurance pre-authorization. PLAN: Assessment Diagnosis Plan 1. Morbid obesity ([facility]) CBC auto differential Ambulatory referral to Nutrition Services Iron Liver panel Parathyroid Hormone, intact TSH Fluoroscopy upper GI with esophagus Ultrasound abdomen limited Vitamin B12 Vitamin D 25 hydroxy Hemoglobin A1c Ambulatory referral to Physical Therapy 2. BMI 40.0-44.9, adult ([facility]) [facility] B[facility] Surgery 3. Fatigue, unspecified type CBC auto differential Iron Liver panel Parathyroid Hormone, intact TSH Vitamin B12 Vitamin D 25 hydroxy Hemoglobin A1c Ambulatory referral to Physical Therapy 4. Pre-bariatric surgery nutrition evaluation Ambulatory referral to Nutrition Services 5. Preop testing CBC auto differential Iron Liver panel Parathyroid Hormone, intact TSH Fluoroscopy upper GI with esophagus Ultrasound abdomen limited Vitamin B12 Vitamin D 25 hydroxy Hemoglobin A1c Plan Initial Testing Procedure: sleeve gastrectomy Imaging: upper GI, right upper quadrant ultrasound Psychological Assessment: Psychological Evaluation and Clearance Nutrition Assessment: Bariatric Nutrition Assessment and Clearance Other Consultations: PCP Final Testing Screening Chest Xray and EKG at PAT appointment Labwork: Final Lab Tests at PAT appointment Please note that this chart was generated using voice recognition SnapMyAd dictation software. Although every effort was made to ensure the accuracy of this automated teacher dramatics, some errors in teacher dramatics may have occurred. documented in this encounter Plan of Treatment Upcoming Encounters Date Type Department Care Team (Late st Contact Info) Description 02/03/2025 4:30 PM EDT Appointment [facility] [address] [place] [address] Morbid obesity ([facility]); Fatigue, unspecified type 12/02/2025 1:30 PM EDT Office Visit [facility] [address] [place] [phone] Kassie Pereira, ASSISTANT PROFESSOR OF PSYCHOLOGY-FILM OR VIDEOTAPE EDITOR [address] [place], [place] [phone] Scheduled Orders Name Type Priority Associated Diagnoses Orde r Schedule Fluoroscopy upper GI with esophagus Imaging Routine Morbid obesity ([facility]) Preop testing Expected: 01/20/2025, Expires: 01/20/2026 Ultrasound abdomen limited Imaging Routine Morbid obesity ([facility]) Preop testing Expected: 01/20/2025, Expires: 01/20/2026 Scheduled Referrals Name Type Priority Associated Diagnoses Order Schedule Ambulatory referral to Physical Therapy Outpatient Referral Routine Morbid obesity ([facility]) Fatigue, unspecified type 1 Occurrences starting 01/20/2025 until 01/20/2026 documented as of this encounter Results * Ambulatory referral to Nutrition Services (01/21/2025 1:54 PM EDT) Fanta Asencio MD OUTPATIENT REFERRAL ORDERABLES Final Result MANUALLY TRANSCRIBED RESULTS * Hemoglobin A1c (01/20/2025 3:08 PM EDT) HEMOGLOBIN A1C 5.5 4.4 - 5.6 % 01/20/2025 6:47 PM EDT [facility] Comment: ADA Guidelines Result HgbA1c Normal : less than 5.7 % Prediabetes : 5.7 % to 6.4 % Diabetes : > 6.4 % Use with caution in patients with abnormal hemoglobin variants as the half-life of red blood cells and in vivo glycation rates are affected. EST. AVERAGE GLUCOSE 111 mg/dL 01/20/2025 6:47 PM EDT [facility] Blood Venous blood / Unknown Venipuncture / Unknown 01/20/2025 3:08 PM EDT 01/20/2025 3:08 PM EDT Fanta Asencio MD LAB BLOOD ORDERABLES Final Resu lt [facility] [address] [place] [address], * (ABNORMAL) Vitamin D 25 hydroxy (01/20/2025 3:08 PM EDT) VITAMIN D 25 HYD TOT 16.4(L) 30.0 - 100.0 ng/mL 01/20/2025 6:00 PM EDT [facility] Blood Venous blood / Unknown Venipuncture / Unknown 01/20/2025 3:08 PM EDT 01/20/2025 3:08 PM EDT Narrative [facility] - 01/20/2025 6:00 PM EDT Vitamin D status 25 [place] Vitamin D Deficiency <20 ng/mL Insufficiency 20-29 ng/mL Sufficiency 30-100 ng/mL Toxicity >100 ng/mL NOTE: A pediatric reference range has not been established by the wood milling machine operator of this kit. The [place] [employer] recommends a Vitamin D level of = or >20ng/mL in infants and children. us Fanta Asencio MD LAB BLOOD ORDERABLES Final Resu lt [facility] [address] [place] [address], * Vitamin B12 (01/20/2025 3:08 PM EDT) VITAMIN B12 379 180 - 914 pg/mL 01/20/2025 5:57 PM EDT [facility] Blood Venous blood / Unknown Venipuncture / Unknown 01/20/2025 3:08 PM EDT 01/20/2025 3:08 PM EDT Fanta Asencio MD LAB BLOOD ORDERABLES Final Resu lt [facility] [address] [place] [address], [place] [phone] * TSH (01/20/2025 3:08 PM EDT) TSH 0.84 0.49 - 4.67 uIU/mL 01/20/2025 5:48 PM EDT [facility] Blood Venous blood / Unknown Venipuncture / Unknown 01/20/2025 3:08 PM EDT 01/20/2025 3:08 PM EDT us Fanta Asencio MD LAB BLOOD ORDERABLES Final Resu lt Performing Organization Address City/[facility]/ZIP Co de Phone Number [facility] [address] [place] [address], [place] [phone] * Parathyroid Hormone, intact (01/20/2025 3:08 PM EDT) PTH INTACT 63 12 - 88 pg/mL 01/20/2025 5:53 PM EDT [facility] Blood Venous blood / Unknown Venipuncture / Unknown 01/20/2025 3:08 PM EDT 01/20/2025 3:08 PM EDT us Fanta Asencio MD LAB BLOOD ORDERABLES Final Resu lt Performing Organization Address City/[facility]/ZIP Co de Phone Number [facility] [address] [place] [address], [place] [phone] * Liver panel (01/20/2025 3:08 PM EDT) TOTAL PROTEIN 7.3 6.0 - 8.0 g/dL 01/20/2025 5:40 PM EDT [facility] ALBUMIN 4.5 3.2 - 5.3 g/dL 01/20/2025 5:40 PM EDT [facility] BILIRUBIN,TOTAL 0.3 0.3 - 1.2 mg/dL 01/20/2025 5:40 PM EDT [facility] ALKALINE PHOSPHATASE 110 39 - 130 U/L 01/20/2025 5:40 PM EDT [facility] AST 20 <=41 U/L 01/20/2025 5:40 PM EDT [facility] ALT 20 <=31 U/L 01/20/2025 5:40 PM EDT [facility] BILIRUBIN,DIRECT <0.1 <=0.4 mg/dL 01/20/2025 5:40 PM EDT [facility] Blood Venous blood / Unknown Venipuncture / Unknown 01/20/2025 3:08 PM EDT 01/20/2025 3:08 PM EDT Fanta Asencio MD LAB BLOOD ORDERABLES Final Resu lt [facility] [address] [place] [address], [place] [phone] * (ABNORMAL) Iron (01/20/2025 3:08 PM EDT) IRON 29(L) 50 - 170 ug/dL 01/20/2025 5:40 PM EDT [facility] Blood Venous blood / Unknown Venipuncture / Unknown 01/20/2025 3:08 PM EDT 01/20/2025 3:08 PM EDT Fanta Asencio MD LAB BLOOD ORDERABLES Final Resu lt [facility] [address] [place] [address], [place] [phone] * (ABNORMAL) CBC auto differential (01/20/2025 3:08 PM EDT) [facility] Signature WBC 8.2 4 - 11 x10E9/L 01/20/2025 5:39 PM EDT [facility] RBC Count 5.21(H) 3.8 - 5.2 X10E12/L 01/20/2025 5:39 PM EDT [facility] Hemoglobin 13.2 11.7 - 15.5 g/dL 01/20/2025 5:39 PM EDT [facility] Hematocrit 40.6 35 - 47 % 01/20/2025 5:39 PM EDT [facility] MCV 78(L) 80 - 100 fL 01/20/2025 5:39 PM EDT [facility] MCH 25.3(L) 27 - 34 pg 01/20/2025 5:39 PM EDT [facility] MCHC 32.5 32 - 36 g/dL 01/20/2025 5:39 PM EDT [facility] RDW 14.3 11.5 - 15 % 01/20/2025 5:39 PM EDT [facility] Platelet Count 319 150 - 450 X10E9/L 01/20/2025 5:39 PM EDT [facility] MPV 9.3 7 - 12 fL 01/20/2025 5:39 PM EDT [facility] Neutrophils % 65.8 % 01/20/2025 5:39 PM EDT [facility] Lymphocytes % 27.8 % 01/20/2025 5:39 PM EDT [facility] Monocytes % 4.1 % 01/20/2025 5:39 PM EDT [facility] Eosinophils % 1.2 % 01/20/2025 5:39 PM EDT [facility] Basophils % 1.1 % 01/20/2025 5:39 PM EDT [facility] Neutrophils Absolute (A) 5.4 1.5 - 6.6 10*3/uL 01/20/2025 5:39 PM EDT [facility] Lymphocytes Absolute 2.3 1.0 - 3.5 10*3/uL 01/20/2025 5:39 PM EDT [facility] Monocytes Absolute 0.3 0.0 - 0.9 10*3/uL 01/20/2025 5:39 PM EDT [facility] Eosinophils Absolute 0.1 0.0 - 0.4 10*3/uL 01/20/2025 5:39 PM EDT [facility] Basophils Absolute 0.1 0.0 - 0.2 10*3/uL 01/20/2025 5:39 PM EDT [facility] Differential Type AUTOMATED DIFFERENTIAL 01/20/2025 5:39 PM EDT [facility] Blood Venous blood / Unknown Venipuncture / Unknown 01/20/2025 3:08 PM EDT 01/20/2025 3:08 PM EDT us Fanta Asencio MD LAB BLOOD ORDERABLES Final Resu lt [facility] [address] [place] [address], documented in this encounter Visit Diagnoses Diagnosis Morbid obesity (CMS-HCC)- Primary Morbid obesity BMI 40.0-44.9, adult (CMS-HCC) Fatigue, unspecified type Pre-bariatric surgery nutrition evaluation Preop testing Unspecified pre-operative examination Morbid obesity (CMS-HCC) Morbid obesity Fatigue, unspecified type documented in this encounter Additional Health Concerns Assessment Noted Time PHQ-9 Depression Total Score: 0 01/07/20 25 1:32 PM EDT A Body Mass Index follow-up plan has been documented for the patient 01/06/2025 2:01 PM EDT documented as of this encounter Care Teams Stone Operator Relationship Specialty Start Date End Date Kassie Pereira APRN-FILM OR VIDEOTAPE EDITOR [address] [place] [address] PCP - General Family Medicine 09/21/22 documented as of this encounter
--- OUTSIDE RECORDS SUMMARY | 2025-01-21 13:00 | XMS_ITS | Encounter Summary ---
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 Name Role Phone NellieKassie perez CHIARA-COLD ROLL INSPECTOR Primary Care Provide r Reason for Visit * Reason Comments Nutrition Counseling * Consultation (Routine) - Pending Review Specialty Diagnoses / Procedures Referred By Contac t Referred To Contact Nutrition Diagnoses Morbid obesity ([facility]) Pre-bariatric surgery nutrition evaluation Fanta Asencio MD [address] [place] [address] Phone: tel: fax: Referral ID Status Reason Start Date Expiration Date Visits Requested Visits Authorized [id number] Pending Review Specialty Services Required 01/20/2025 01/20/2026 12 12 Encounter Details Date Type Department Care Team ([facility] st Contact Info) Description 01/21/2025 1:00 PM EDT Telemedicine [facility] [address] [facility] [address] [place] [phone] July Ruiz LD Pre-bariatric surgery nutrition evaluation (Primary Dx); Morbid obesity ([facility]) Social History Tobacco Use Types Packs/Day Years Used Date Smoking Tobacco: Former Vaping/E-cigarettes Quit: 2021 Smokeless Tobacco: Never Alcohol Use Standard Drinks/Week Comments Not Currently 0 (1 standard drink = 0.6 oz pur e alcohol) [facility] Utilities Answer Date Recorded In [...] things needed for daily living? No 09/11/2023 [place] Depression Scale Answer Date Recorded [place] Depression Scale Total 6 04/03/2023 The thought [...] Sign Reading Time Taken Comments Blood Pressure - - Pulse - - Temperature - - Respiratory Rate - - Oxygen Saturation - - Inhaled Oxygen Concentration - - Weight 120.7 kg (266 lb) 01/21/2025 1:05 PM EDT Height 165.1 cm (5' 5 ) 01/21/2025 1:05 PM EDT Body Mass Index 44.26 01/21/2025 1:05 PM EDT documented in this encounter Patient Instructions * Patient Instructions* MIRIAN Avelar - 01/21/2025 1:00 PM EDT Read the [facility] Bariatric Guide. If you???re looking for general health and wellness resources, please visit [email or web address] documented in this encounter Progress Notes * MIRIAN Avelar - 01/21/2025 1:00 PM EDT Bariatric Medical Nutrition Therapy Nutritional Assessment/Education Initial Nutrition Education Video Visit via Real-time Synchronous Audiovisual Provider Location: [facility] OF [facility] [address] [place] [phone] Patient Location: Patient's home Video Visit Consent Statement: I discussed risks, benefits, and alternatives of a real-time synchronous audiovisual consultation with the patient (and any accompanying persons) including the risks that the patient's personal health details and medical records will be discussed over real-time, synchronous, interactive video/audio/telecommunication technology, the visit will not be recorded withoutthe express consent of both the provider and the patient, and that there are some limitations compared to [id number] evaluations. The patient consented to the presence of additional virtual and/or in-person participants. We elected to proceed. Norma Gonzalez is a 29 y.o. female who presents for medical nutritional therapy evaluation and education for weight loss surgery. This patient is interested in the sleeve gastrectomy. Ht 165.1 cm (5' 5 ) Wt 120.7 kg (266 lb) BMI 44.26 kg/m?? Relevant medical history: GERD, Insulin Resistance, Asthma Barrier learning assessment: Yes Weight history: Highest adult weight was 278 pounds. Lowest adult weight was 220 pounds. Norma Gonzalez wants to feel better and have more energy and does not have a goal weight in mind. There is a positive family history for obesity. Previous diet and medication treatments for obesity include: Ozempic (lost 30# in 12 weeks). Despite these attempts at dieting and exercise, the patient has failed to maintain any sustained weight loss. 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 Smoking, chewing tobacco/dipping or smokeless tobacco products: quit 2020 Family/friend support for weight loss surgery: , parents Primary cook in the house: Self and Primary person who does the grocery shopping: self and Nutritional Assessment: Pt???s view as his/her biggest problem/concern with eating: Overeat and eating out of boredom Food weakness or trigger foods: Sweets Is satiety recognized?: Not until overly full Personal eating pace: 20 minutes Emotional eating: Yes Location of most meals: Dining room table (scrolling on phone) Diet Recall: 5:30 AM (wake)- 9/9:30 PM (bed) Breakfast 6/7 AM Snack Lunch 10:30 AM Snack 1 PM Dinner 6 PM Snack 8 PM Breakfast sandwich with egg, sausage, cheese Cafeteria: Pizza OR Wings OR Brilliant wrap Strawberries OR Banana OR Fruit OR yogurt Baked potatoes and vegan chili OR Spaghetti OR Plant based chicken patties OR Mushroom gravy with plant based meat over baked potatotes Cookie OR poptart Beverage Intake: crystal light, pop (1-2x/day), coffee infrequently Alcohol Intake: None Weekend Meal Pattern: Similar to week days Dining Out Frequency: 1x/week Vitamin/Mineral/Herbal Supplements: None Food Allergies/Intolerances: NKA Pentecostal/Cultural Food Requests: None, is vegan Activity Level: Formal Exercise: None General Activity Status: Combination of lightly active on feet at work and sedentary time at home Nutrition Diagnosis: Obesity as evidenced by BMI. Body mass index is 44.26 kg/m??. Nutrition Intervention: Initial nutrition education Discussed diet and behavioral changes needed to be successful with weight loss surgery. Patient agrees to the following goals: 1) Eat 4-5 meals per day. No night time snacking. 2) Avoid all sugars, sweets and desserts. Read food labels and avoid foods/beverages with > 5 grams sugar per serving. 3) Eat fewer fried foods, limit fats added to foods, and avoid high fat fast foods. Read food labels for foods < 3 grams fat per serving. 4) Eat protein-rich food at each meal followed by vegetables, then fruit, while limiting starches. 5) Take a multivitamin/mineral supplement daily. 6) Sip 64 ounces of liquids between meals. 7) Eliminate drinks with sugar, alcohol, caffeine and carbonation. 8) Eat meals very slowly, approximately 30 minutes per meal. Stop eating when feel full. 9) Take small bites. Chew foods well. 10) Avoid emotional eating / mindless eating. 11) Exercise 3 times per week. Written information on all discussed has been provided within the [facility] Bariatric Guide. My contact name and number provided if questions or concerns arise. Nutrition Monitoring: To follow up in 1 month to show progress towards goals. Start time: 1259 End time: 1353 documented in this encounter Plan of Treatment Upcoming Encounters Date Type Department Care Team (Late st Contact Info) Description 02/03/2025 4:30 PM EDT Appointment [facility] [place] [facility] [address] [place] [phone] Morbid obesity (CMS-HCC); Fatigue, unspecified type 12/02/2025 1:30 PM EDT Office Visit [facility] [address] [place] [phone] Kassie Pereira, CHIARA-ELIAS [address] [place] [address] documented as of this encounter Procedures Procedure Name Priority Date/Time Associated Diagnosis Comments AMB REFERRAL TO NUTRITION SERVICES Routine 01/21/2025 1:54 PM EDT Morbid obesity (CMS-HCC) Pre-bariatric surgery nutrition evaluation documented in this encounter Results * Ambulatory referral to Nutrition Services (01/21/2025 1:54 PM EDT) us Fanta Asencio MD OUTPATIENT REFERRAL ORDERABLES Final Result MANUALLY TRANSCRIBED RESULTS documented in this encounter Visit Diagnoses Diagnosis Pre-bariatric surgery nutrition evaluation- Primary Morbid obesity (CMS-HCC) Morbid obesity Morbid obesity ([facility]) Morbid obesity Fatigue, unspecified type documented in this encounter Additional Health Concerns Assessment Noted Time PHQ-9 Depression Total Score: 0 01/07/20 25 1:32 PM EDT A Body Mass Index follow-up plan has been documented for the patient 01/06/2025 2:01 PM EDT documented as of this encounter Care Teams Rail Car Maintenance Mechanic Relationship Specialty Start Date End Date Kassie Pereira APRN-COLD ROLL INSPECTOR [address] [place] [address] PCP - General Family Medicine 09/21/22 documented as of this encounter
--- OUTSIDE RECORDS SUMMARY | 2025-02-03 13:34 | XMS_ITS | Clinical Summary ---
Author Organization Vostus tem Address [id number] [address] [place] [address] Care Team Providers Care Solvent Mixer Name Role Phone NellieKassie perez PHARMACEUTICAL ENGINEER-BOWSTRING MAKER Primary Care Provide r Allergies Active Allergy Reactions Criticality Noted Date Comments Penicillins Rash Low 05/08/2017 Medications albuterol (PROVENTIL HFA;VENTOLIN HFA) 90 mcg/actuation inhalerIndicat ions:COVID-19 Inhale 2 puffs every 6 (six) hours as needed for wheezing. 18 g 2 02/16/20 21 Active Additional Information Patient not taking.Reported on 01/20/2025 omeprazole (PriLOSEC) 20 mg capsule Take 1 capsule (20 mg total) by mouth in the morning. 90 capsule 1 06/04/19 25 Active dicyclomine (BENTYL) 20 mg tablet Take 1 tablet (20 mg total) by mouth in the morning and 1 tablet (20 mg total) before bedtime. 30 tablet 08/03/19 25 Active Additional Information Patient not taking.Reported on 01/06/2025 methocarbamoL (ROBAXIN) 500 mg tablet Take 1 tablet (500 mg total) by mouth 2 (two) times a day as needed for muscle spasms (back pain). 20 tablet 01/12/20 25 Active Additional Information Patient not taking.Reported on 01/20/2025 escitalopram (LEXAPRO) 10 mg tablet Take 1 tablet (10 mg total) by mouth in the morning. 30 tablet 12/02/19 25 025 Discontinued semaglutide, weight loss, (WEGOVY) 0.25 mg/0.5 mL pen injectorIndica tions:BMI 40.0-44.9, adult ([facility]) Inject 0.5 mL (0.25 mg total) under the skin every 7 days. 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 Patient underwent PLTCS d/t arrhythmia with concern of third degree degree heart block. SSB +, all others negative Tachyarrhythmia 06/18/2019 Tachycardia with heart rate 121-140 beats per mi nute 06/17/2019 Migraine Fibromyalgia, primary Resolved Problems Problem Noted Date Diagnosed Date Resolved Date premature rupture of membranes (PPROM) delivered, current hospitalization 01/09/2023 01/06/2025 with 15 completed weeks gestation 11/08/2022 01/24/2023 Encounters Date Type Department Care Team Description 01/21/2025 1:00 PM EDT Telemedicine [facility] Dieticians [address] [place] [phone] July Ruiz LD Pre-bariatric surgery nutrition evaluation (Primary Dx); Morbid obesity (CMS-HCC) 01/20/2025 2:30 PM EDT Office Visit [facility] [address] [place] [phone] Fanta Asencio MD Morbid obesity ([facility]) (Primary Dx); BMI 40.0-44.9, adult ([facility]); Fatigue, unspecified type; Pre-bariatric surgery nutrition evaluation; Preop testing 01/20/2025 Travel 01/13/2025 Telephone [facility] [place] [address] Kassie Pereira APRN-CNP 01/12/2025 Travel 01/11/2025 6:02 AM EDT - 01/11/2025 8:04 AM EDT Emergency [facility] - Emergency [address] [place] [address] Steve Medellin MD Strain of lumbar region, initial encounter (Primary Dx) Discharge Disposition: Home 01/11/2025 Travel 01/06/2025 1:30 PM EDT Office Visit [facility] [place] [address] Kassie Pereira APRN-CNP Anxiety (Primary Dx); BMI 40.0-44.9, adult ([facility]) 01/06/2025 Telephone [facility] [address] [place] [address] Sarahi Carlson, [facility] 01/06/2025 Travel 01/05/2025 Orders Only [facility] [address] [place], [place] [address] [place] [address] Kassie Pereira APRN-CNP 12/29/2024 Telephone [facility] [address] [place] [address] Dior Santos, [facility] 12/28/2024 Telephone [facility] [address] [place] [address] Dior Santos, [facility] 12/25/2024 Telephone [facility] [place] [address] Dior Santos, [facility] 12/23/2024 Refill [facility] [address] [address] Kassie Pereira APRN-CNP 12/04/2024 Results Follow-Up [facility] [place] [address] Kassie Pereira APRN-CNP CBC auto differential, Comprehensive metabolic panel, Lipid profile 12/03/2024 Telephone [facility] [address] [place] [address] Kassie Pereira APRN-CNP 12/01/2024 1:30 PM EDT Office Visit [facility] [address] [place] [address] Kassie Pereira APRN-CNP Wellness examination (Primary Dx); Anxiety; Risk factors for obstructive sleep apnea 12/01/2024 Travel from Last 3 Months Immunizations Immunization Administration Dates Next Due DTP / HiB 06/23/1996 DTaP, Unspecified 07/26/2000,03/25/1998,02/23/19 97,09/08/1996 Hep B, Adjuvanted 03/25/2024 Hep B, Adolescent or Pediatric 09/08/1996,1996,1995 HiB 03/25/1998,02/23/1997,09/08/1996 IPV 07/26/2000 MMR 07/26/2000,02/23/1997 OPV 02/23/1997,09/08/1996,06/23/1996 Tdap 01/26/2023,04/27/2019,11/15/2016 ,01/06/2015 Varicella 03/27/1999 Family History Medical History Relation Name Comments Chiari malformation Father Diabetes Mother Heart disease Mother Lupus Mother Relation Name Status Comments Father Alive Mother Alive Social History Tobacco Use Types Packs/Day Years Used Date Smoking Tobacco: Former Vaping/E-cigarettes Quit: 2021 Smokeless Tobacco: Never Tobacco Cessation:Counseling Given: Not Answered Alcohol Use Standard Drinks/Week Comments Not Currently 0 (1 standard drink = 0.6 oz pur e alcohol) [facility] Utilities Answer Date Recorded In the past 12 months has e [employer], gas, oil, or water company threatened to [...] things needed for daily living? No 09/11/2023 Lincoln Depression Scale Answer Date Recorded Lincoln Depression Scale Total 6 04/03/2023 The thought [...] Orientation Straight 09/11/2023 6: 37 PM EDT Last Filed Vital Signs Vital Sign Reading Time Taken Comments Blood Pressure 139/87 01/20/2025 2:00 PM EDT Pulse 99 01/20/2025 2:00 PM EDT Temperature 37 C (98.6 F) 01/11/2025 7:23 AM EDT Respiratory Rate 18 01/11/2025 7:23 AM EDT Oxygen Saturation 100% 01/11/2025 7:23 AM EDT Inhaled Oxygen Concentration - - Weight 120.7 kg (266 lb) 01/21/2025 1:05 PM EDT Height 165.1 cm (5' 5 ) 01/21/2025 1:05 PM EDT Body Mass Index 44.26 01/21/2025 1:05 PM EDT Plan of Treatment Upcoming Encounters Date Type Department Care Team (Late st Contact Info) Description 02/03/2025 4:30 PM EDT Appointment [facility] [address] [place] [address] Morbid obesity (CMS-HCC); Fatigue, unspecified type 12/02/2025 1:30 PM EDT Office Visit [facility] [address] [place] [address] Kassie Pereira, PHARMACEUTICAL ENGINEER-BOWSTRING MAKER [address] [place], [place] [phone] Health Maintenance Due Date Last Done Comments Pap Smear 11/26/2016 Influenza Vaccine 01/04/2025 Adult BMI Follow Up Plan 01/06/2026 01/06/2025 Depression Screening 01/06/2026 01/06/2025, 04/03/20 Tobacco Screening 01/20/2026 01/20/2025 Adult BMI Screening 01/21/2026 01/21/2025 DTaP,Tdap and Td Vaccines (1 0 - Td or Tdap) 01/26/2033 01/26/2023, 04/27/2019, 11/15/2016, Additional history exists Medical Devices Not on file Procedures Procedure Name Priority Date/Time Associated Diagnosis Comments AMB REFERRAL TO NUTRITION SERVICES Routine 01/21/2025 1:54 PM EDT Morbid obesity (CMS-HCC) Pre-bariatric surgery nutrition evaluation HEMOGLOBIN A1C Routine 01/20/2025 3:08 PM EDT Morbid obesity (CMS-HCC) Fatigue, unspecified type Preop testing VITAMIN D 25 HYDROXY Routine 01/20/2025 3:08 PM EDT Morbid obesity (CMS-HCC) Fatigue, unspecified type Preop testing VITAMIN B12 Routine 01/20/2025 3:08 PM EDT Morbid obesity (CMS-HCC) Fatigue, unspecified type Preop testing TSH Routine 01/20/2025 3:08 PM EDT Morbid obesity (CMS-HCC) Fatigue, unspecified type Preop testing PARATHYROID HORMOME, INTACT Routine 01/20/2025 3:08 PM EDT Morbid obesity (CMS-HCC) Fatigue, unspecified type Preop testing LIVER PANEL Routine 01/20/2025 3:08 PM EDT Morbid obesity (CMS-HCC) Fatigue, unspecified type Preop testing IRON Routine 01/20/2025 3:08 PM EDT Morbid obesity (CMS-HCC) Fatigue, unspecified type Preop testing CBC WITH AUTO DIFFERENTIAL Routine 01/20/2025 3:08 PM EDT Morbid obesity (CMS-HCC) Fatigue, unspecified type Preop testing LIPID PROFILE Routine 12/03/2024 1:25 PM EDT Wellness examination COMPREHENSIVE METABOLIC PANEL Routine 12/03/2024 1:25 PM EDT Wellness examination CBC WITH AUTO DIFFERENTIAL Routine 12/03/2024 1:25 PM EDT Wellness examination from Last 3 Months Results * Ambulatory referral to Nutrition Services (01/21/2025 1:54 PM EDT) Fanta Asencio MD OUTPATIENT REFERRAL ORDERABLES Final Result MANUALLY TRANSCRIBED RESULTS * Parathyroid Hormone, intact (01/20/2025 3:08 PM EDT) PTH INTACT 63 12 - 88 pg/mL 01/20/2025 5:53 PM EDT [facility] Blood Venous blood / Unknown Venipuncture / Unknown 01/20/2025 3:08 PM EDT 01/20/2025 3:08 PM EDT Fanta Asencio MD LAB BLOOD ORDERABLES Final Resu lt [facility] [address] [place] [address], [place] [phone] * (ABNORMAL) CBC auto differential (01/20/2025 3:08 PM EDT) Only the most recent of2 resultswithin the time period is included. WBC 8.2 4 - 11 x10E9/L 01/20/2025 5:39 PM EDT [facility] RBC Count 5.21(H) 3.8 - 5.2 X10E12/L 01/20/2025 5:39 PM EDT [facility] Hemoglobin 13.2 11.7 - 15.5 g/dL 01/20/2025 5:39 PM EDT [facility] Hematocrit 40.6 35 - 47 % 01/20/2025 5:39 PM EDT [facility] MCV 78(L) 80 - 100 fL 01/20/2025 5:39 PM EDT [facility] MCH 25.3(L) 27 - 34 pg 01/20/2025 5:39 PM EDT [facility] MCHC 32.5 32 - 36 g/dL 01/20/2025 5:39 PM EDT [facility] RDW 14.3 11.5 - 15 % 01/20/2025 5:39 PM EDT [facility] Platelet Count 319 150 - 450 X10E9/L 01/20/2025 5:39 PM EDT [facility] MPV 9.3 7 - 12 fL 01/20/2025 5:39 PM EDT [facility] Neutrophils % 65.8 % 01/20/2025 5:39 PM EDT [facility] Lymphocytes % 27.8 % 01/20/2025 5:39 PM EDT [facility] Monocytes % 4.1 % 01/20/2025 5:39 PM EDT [facility] Eosinophils % 1.2 % 01/20/2025 5:39 PM EDT [facility] Basophils % 1.1 % 01/20/2025 5:39 PM EDT [facility] Neutrophils Absolute (A) 5.4 1.5 - 6.6 10*3/uL 01/20/2025 5:39 PM EDT [facility] Lymphocytes Absolute 2.3 1.0 - 3.5 10*3/uL 01/20/2025 5:39 PM EDT [facility] Monocytes Absolute 0.3 0.0 - 0.9 10*3/uL 01/20/2025 5:39 PM EDT [facility] Eosinophils Absolute 0.1 0.0 - 0.4 10*3/uL 01/20/2025 5:39 PM EDT [facility] Basophils Absolute 0.1 0.0 - 0.2 10*3/uL 01/20/2025 5:39 PM EDT [facility] Differential Type AUTOMATED DIFFERENTIAL 01/20/2025 5:39 PM EDT [facility] Blood Venous blood / Unknown Venipuncture / Unknown 01/20/2025 3:08 PM EDT 01/20/2025 3:08 PM EDT us Fanta Asencio MD LAB BLOOD ORDERABLES Final Resu lt [facility] [address] [place] [address], * (ABNORMAL) Vitamin D 25 hydroxy (01/20/2025 3:08 PM EDT) VITAMIN D 25 HYD TOT 16.4(L) 30.0 - 100.0 ng/mL 01/20/2025 6:00 PM EDT [facility] Blood Venous blood / Unknown Venipuncture / Unknown 01/20/2025 3:08 PM EDT 01/20/2025 3:08 PM EDT Narrative [facility] - 01/20/2025 6:00 PM EDT Vitamin D status 25 [place] Vitamin D Deficiency <20 ng/mL Insufficiency 20-29 ng/mL Sufficiency 30-100 ng/mL Toxicity >100 ng/mL NOTE: A pediatric reference range has not been established by the freight forwarder of this kit. The [place] [employer] recommends a Vitamin D level of = or >20ng/mL in infants and children. us Fanta Asencio MD LAB BLOOD ORDERABLES Final Resu lt [facility] [address] [place] [address], [place] [phone] * TSH (01/20/2025 3:08 PM EDT) TSH 0.84 0.49 - 4.67 uIU/mL 01/20/2025 5:48 PM EDT [facility] Blood Venous blood / Unknown Venipuncture / Unknown 01/20/2025 3:08 PM EDT 01/20/2025 3:08 PM EDT us Fanta Asencio MD LAB BLOOD ORDERABLES Final Resu lt Performing Organization Address City/[facility]/ZIP Co de Phone Number [facility] [address] [place] [address], [place] [phone] * (ABNORMAL) Iron (01/20/2025 3:08 PM EDT) IRON 29(L) 50 - 170 ug/dL 01/20/2025 5:40 PM EDT [facility] Blood Venous blood / Unknown Venipuncture / Unknown 01/20/2025 3:08 PM EDT 01/20/2025 3:08 PM EDT us Fanta Asencio MD LAB BLOOD ORDERABLES Final Resu lt Performing Organization Address City/[facility]/ZIP Co de Phone Number [facility] [address] [place] [address], [place] [phone] * Hemoglobin A1c (01/20/2025 3:08 PM EDT) [facility] HEMOGLOBIN A1C 5.5 4.4 - 5.6 % 01/20/2025 6:47 PM EDT [facility] Comment: ADA Guidelines Result HgbA1c Normal : less than 5.7 % Prediabetes : 5.7 % to 6.4 % Diabetes : > 6.4 % Use with caution in patients with abnormal hemoglobin variants as the half-life of red blood cells and in vivo glycation rates are affected. EST. AVERAGE GLUCOSE 111 mg/dL 01/20/2025 6:47 PM EDT [facility] Blood Venous blood / Unknown Venipuncture / Unknown 01/20/2025 3:08 PM EDT 01/20/2025 3:08 PM EDT Fanta Asencio MD LAB BLOOD ORDERABLES Final Resu lt [facility] [address] [place] [address], * Vitamin B12 (01/20/2025 3:08 PM EDT) [facility] VITAMIN B12 379 180 - 914 pg/mL 01/20/2025 5:57 PM EDT [facility] Blood Venous blood / Unknown Venipuncture / Unknown 01/20/2025 3:08 PM EDT 01/20/2025 3:08 PM EDT Fanta Asencio MD LAB BLOOD ORDERABLES Final Resu lt [facility] [address] [place] [address], * Liver panel (01/20/2025 3:08 PM EDT) [facility] TOTAL PROTEIN 7.3 6.0 - 8.0 g/dL 01/20/2025 5:40 PM EDT [facility] ALBUMIN 4.5 3.2 - 5.3 g/dL 01/20/2025 5:40 PM EDT [facility] BILIRUBIN,TOTAL 0.3 0.3 - 1.2 mg/dL 01/20/2025 5:40 PM EDT [facility] ALKALINE PHOSPHATASE 110 39 - 130 U/L 01/20/2025 5:40 PM EDT [facility] AST 20 <=41 U/L 01/20/2025 5:40 PM EDT [facility] ALT 20 <=31 U/L 01/20/2025 5:40 PM EDT [facility] BILIRUBIN,DIRECT <0.1 <=0.4 mg/dL 01/20/2025 5:40 PM EDT [facility] Blood Venous blood / Unknown Venipuncture / Unknown 01/20/2025 3:08 PM EDT 01/20/2025 3:08 PM EDT us Fanta Asencio MD LAB BLOOD ORDERABLES Final Resu lt [facility] [address] [place] [address], * (ABNORMAL) Lipid profile (12/03/2024 1:25 PM EDT) CHOLESTEROL 199 150 - 200 mg/dL 12/03/2024 6:19 PM EDT [facility] TRIGLYCERIDE 189(H) 27 - 150 mg/dL 12/03/2024 6:19 PM EDT [facility] HDL CHOLESTEROL 50 >39 mg/dL 6:19 PM EDT [facility] Comment: HDL <40 mg/dL - High Risk HDL > or = 40mg/dL- Desirable HDL >60 mg/dL - Negative Risk LDL (CALC) 111 <130 mg/dL 12/03/2024 6:19 PM EDT [facility] Comment: LDL <100 mg/dL - Desirable LDL >160 mg/dL - High Risk CHOLESTEROL:HDL 4.0 1.0 - 5.0 6:19 PM EDT [facility] VERY LOW LIPOPROTEIN 38(H) 0 - 30 mg/dL 12/03/2024 6:19 PM EDT [facility] Blood Venous blood / Unknown Venipuncture / Unknown 12/03/2024 1:25 PM EDT 12/03/2024 1:25 PM EDT us Kassie Pereira PHARMACEUTICAL ENGINEER-BOWSTRING MAKER LAB BLOOD ORDERABLES Final Result [facility] [address] [place] [phone], * Comprehensive metabolic panel (12/03/2024 1:25 PM EDT) SODIUM 138 134 - 146 mmol/L 12/03/2024 6:19 PM EDT [facility] POTASSIUM 3.7 3.5 - 5.0 mmol/L 12/03/2024 6:19 PM EDT [facility] CHLORIDE 101 98 - 109 mmol/L 12/03/2024 6:19 PM EDT [facility] CARBON DIOXIDE 27 22 - 32 mmol/L 12/03/2024 6:19 PM EDT [facility] ANION GAP 10 5 - 15 mmol/L 12/03/2024 6:19 PM EDT [facility] BLOOD UREA NITROGEN 15 5 - 23 mg/dL 12/03/2024 6:19 PM EDT [facility] CREATININE 0.67 0.40 - 1.00 mg/dL 12/03/2024 6:19 PM EDT [facility] Comment:METHOD TRACEABLE TO IDMS STANDARD GLUCOSE 79 65 - 99 mg/dL 12/03/2024 6:19 PM EDT [facility] CALCIUM 9.2 8.5 - 10.5 mg/dL 12/03/2024 6:19 PM EDT [facility] TOTAL PROTEIN 7.1 6.0 - 8.0 g/dL 12/03/2024 6:19 PM EDT [facility] ALBUMIN 4.4 3.2 - 5.3 g/dL 12/03/2024 6:19 PM EDT [facility] ALKALINE PHOSPHATASE 108 39 - 130 U/L 12/03/2024 6:19 PM EDT [facility] AST 23 <=41 U/L 12/03/2024 6:19 PM EDT [facility] ALT 19 <=31 U/L 12/03/2024 6:19 PM EDT [facility] BILIRUBIN,TOTAL 0.6 0.3 - 1.2 mg/dL 12/03/2024 6:19 PM EDT [facility] EGFR Non-Race Dependent >90 >=60 ml/min/1.7 3sq.m 12/03/2024 6:19 PM EDT [facility] Comment: Reported eGFR is based on the CKD-EPI 2020 equation that does not use a race coefficient. Blood Venous blood / Unknown Venipuncture / Unknown 12/03/2024 1:25 PM EDT 12/03/2024 1:25 PM EDT Kassie Pereira PHARMACEUTICAL ENGINEER-BOWSTRING MAKER LAB BLOOD ORDERABLES Final Result [facility] [address] [place] [address], from Last 3 Months Insurance [employer] Advance Directives * Full Code (Latest Code Status on File) Date Activated Date Inactivated Comments 01/09/2023 6:04 AM 03/08/2023 8:49 PM * Full Code Date Activated Date Inactivated Comments 12/27/2022 8:13 AM 12/27/2022 11:18 AM * Full Code Date Activated Date Inactivated Comments 06/18/2019 2:59 AM 06/21/2019 4:48 PM * Full Code Date Activated Date Inactivated Comments 06/18/2019 12:57 AM 06/18/2019 2:59 AM * Full Code Date Activated Date Inactivated Comments 06/17/2019 6:38 PM 06/17/2019 11:54 PM Care Teams Solvent Mixer Relationship Specialty Start Date End Date Kassie Pereira APRN-BOWSTRING MAKER [address] [place] [address] PCP - General Family Medicine 09/21/22
--- OUTSIDE RECORDS SUMMARY | 2025-02-03 13:34 | XMS_ITS | Encounter Summary ---
Author Organization [facility] [employer] [facility] Address [id number] [address] [place] [address] Care Team Providers Care Watermelon Inspector Name Role Phone Kassie Pereira APRN-PROCESS WORKER Primary Care Provide r Encounter Details Date Type Department Care Team (Late st Contact Info) Description 11/15/2022 Orders Only [facility] [place] [address] [facility] [address] [place] [address] Yuliya Cui RN Social History Tobacco Use Types Packs/Day Years Used Date Smoking Tobacco: Former Vaping/E-cigarettes Smokeless Tobacco: Never Alcohol Use Standard Drinks/Week Comments Not Currently 0 (1 standard drink = 0.6 oz pur e alcohol) PHQ-2 Answer Date Recorded Total Score 0 09/13/2021 Childcare Answer Date Recorded Childcare Unknown 10/15/2018 Employment Answer Date Recorded Employment Unknown 10/15/2018 Purpose - Life Answer Date Recorded Purpose and direction in life Unknown Comments Yes Sex and Gender Information Value Date Recorded Sex Assigned at Not on file Legal Sex Female 11:52 AM EDT Gender Identity Female 09/11/2023 6:37 PM EDT Sexual Orientation Straight 09/11/2023 6: 37 PM EDT documented as of this encounter Plan of Treatment Upcoming Encounters Date Type Department Care Team (Late st Contact Info) Description 02/03/2025 4:30 PM EDT Appointment [facility] [address] [place] [phone] Morbid obesity ([facility]); Fatigue, unspecified type 12/02/2025 1:30 PM EDT Office Visit [facility] [address] [place] [phone] Kassie Pereira APRN-CNP [address] [place], [place] [phone] documented as of this encounter Visit Diagnoses Not on filedocumented in this encounter Additional Health Concerns Infection Onset Date Last Indicated Resolved Time Enteric Rule-Out 12/04/2023 12/04/2023 12/04/2023 4:03 PM EDT COVID-19 Rule-Out 02/19/2024 02/19/2024 02/19/2024 2:02 PM EDT Assessment Noted Time PHQ-9 Depression Total Score: 0 09/14/19 1:00 PM EDT A Body Mass Index follow-up plan has been documented for the patient 07/23/2022 3:31 PM EDT documented as of this encounter Care Teams Watermelon Inspector Relationship Specialty Start Date End Date Kassie Pereira APRN-CNP [address] [place], [place] [phone] PCP - General Family Medicine 09/21/22 documented as of this encounter
--- OUTSIDE RECORDS SUMMARY | 2025-02-03 13:34 | XMS_ITS | Encounter Summary ---
Author Organization [facility] Address [address] [place] [address] Care Team Providers Care Drawing In Hand Name Role Phone Mary AlexisM Unavailable Kassie Pereira NP Unavailable [phone] Encounter Details Date Type Department Care Team (Late st Contact Info) Description 02/25/2023 Abstract [facility] [address] [place] [address] Mary Alexis CN [address] [place], [place] [phone] Social History Tobacco Use Types Packs/Day Years Used Date Smoking Tobacco: Never Alcohol Use Standard Drinks/Week Comments Never 0 (1 standard drink = 0.6 oz pur e alcohol) caffeine: 2-3 cups/day Comments Yes Sex and Gender Information Value Date Recorded Sex Assigned at Not on file Legal Sex Female 7:38 PM EDT Gender Identity Not on file Sexual Orientation Not on file documented as of this encounter Plan of Treatment Upcoming Encounters Date Type Department Care Team (Late st Contact Info) Description 01/06/2026 2:00 PM EDT Office Visit [facility] [address] [place] [address] Mary Alexis CNM [address] [place], [place] [phone] documented as of this encounter Visit Diagnoses Not on filedocumented in this encounter Care Teams Drawing In Hand Relationship Specialty Start Date End Date Mary Alexis CNM [address] [place] [address] Obstetrics and Gynecology 10/25/22 Kassie Pereira NP [address] [place] [address] Referring Physician Family Medicine 12/02/23 documented as of this encounter
--- OUTSIDE RECORDS SUMMARY | 2025-02-03 13:34 | XMS_ITS | Encounter Summary ---
Author Organization [employer] [employer] tem Address [facility] [id number] [address] [place] [address] Care Team Providers Care Agricultural Researcher Name Role Phone Kassie Pereira SENIOR INFORMATION SECURITY CONSULTANT-CUSTOMS COLLECTOR Primary Care Provide r Reason for Visit * Reason Comments Med Change Request Encounter Details Date Type Department Care Team (Late st Contact Info) Description 12/23/2024 Refill [facility] [address] [place] [address] aKssie Pereira APRN-CNP [address] [place] [address] Social History Tobacco Use Types Packs/Day Years Used Date Smoking Tobacco: Former Vaping/E-cigarettes Quit: 2021 Smokeless Tobacco: Never Alcohol Use Standard Drinks/Week Comments Not Currently 0 (1 standard drink = 0.6 oz pur e alcohol) [facility] Utilities Answer Date Recorded In the past [...] PHQ-2 Answer Date Recorded Total Score 0 12/01/2024 PRAPARE - Transportation Answer Date Re corded In the past 12 months, has l ack of transportation kept you from medical appointments or from getting medications? No 12/2023 In the past 12 months, has l ack of transportation kept you from meetings, work, or from getting things needed for daily living? No 09/11/2023 [place] Depression Scale Answer Date Recorded [place] Depression Scale Total 6 04/03/2023 The thought [...] got money to buy more. Never True 12/01/2024 Within the past 12 months th e food we bought just didn't last and we didn't have money to get more. Never True 12/01/2024 Purpose - Life Answer Date Recorded Purpose [...] [facility] [address] [place] [phone] Morbid obesity (CMS-HCC); Fatigue, unspecified type 12/02/2025 1:30 PM EDT Office Visit [facility] [address] [facility] [place] [address] Kassie Pereira, SENIOR INFORMATION SECURITY CONSULTANT-CUSTOMS COLLECTOR [address] [place] [address] documented as of this encounter Visit Diagnoses Not on filedocumented in this encounter Additional Health Concerns Assessment Noted Time PHQ-9 Depression Total Score: 0 12/02/19 25 1:32 PM EDT A Body Mass Index follow-up plan has been documented for the patient 12/03/2024 12:08 PM EDT documented as of this encounter Care Teams Agricultural Researcher Relationship Specialty Start Date End Date Kassie Pereira APRN-ELIAS [address] [place] [address] PCP - General Family Medicine 09/21/22 documented as of this encounter
--- OUTSIDE RECORDS SUMMARY | 2025-02-03 13:34 | XMS_ITS | Encounter Summary ---
Author Organization [facility] [employer] [facility] tem Address [facility]-[id number] [address] [place] [address] Care Team Providers Care Hat Measurer Name Role Phone Kassie Pereira TALENT SOLUTIONS MANAGER-WATER CONSERVATIONIST Primary Care Provide r Encounter Details Date Type Department Care Team (Late st Contact Info) Description 07/31/2022 Orders Only [facility] [address] [place] [phone] Dior Santos CMA Bilateral hand numbness Social History Tobacco Use Types Packs/Day Years [...] Orientation Straight 09/11/2023 6: 37 PM EDT COVID-19 Exposure Response Date Recorded In the last month, have you been in contact with someone who was confirmed or suspected to have Coronavirus / COVID-19? No / Unsure 08/03/2022 8:31 AM EDT documented as of this encounter Plan of Treatment Upcoming Encounters Date Type Department Care Team (Late st Contact Info) Description 02/03/2025 4:30 PM EDT Appointment [facility] [place] [facility] [address] [place] [address] Morbid obesity (CMS-HCC); Fatigue, unspecified type 12/02/2025 1:30 PM EDT Office Visit [facility] [address] [facility] [place] [address] Kassie Pereira APRN-ELIAS [address] [place], [place] [address] documented as of this encounter Procedures Procedure Name Priority Date/Time Associated Diagnosis Comments NERVE CONDUCTION STUDY Routine 07/30/2022 AMB REFERRAL TO NEUROLOGY Routine 07/30/2022 Bilateral hand numbness documented in this encounter Results * Nerve Conduction Study (NCV) (07/30/2022) 07/30/2022 us Scanning Provider External NEUROLOGY ORDERABLES Final Result Performing Organization Address City/[facility] Co de Phone Number MANUALLY TRANSCRIBED RESULTS * Ambulatory referral to Neurology (07/30/2022) 07/30/2022 us Kassie Pereira TALENT SOLUTIONS MANAGER-WATER CONSERVATIONIST OUTPATIENT REFERRAL O RDERABLES Final Result Performing Organization Address City/[facility] Co de Phone Number MANUALLY TRANSCRIBED RESULTS documented in this encounter Visit Diagnoses Diagnosis Bilateral hand numbness Disturbance of skin sensation Morbid obesity (CMS-HCC) Morbid obesity Fatigue, unspecified type documented in this encounter Additional Health Concerns Infection [...] documented as of this encounter Care Teams Hat Measurer Relationship Specialty Start Date End Date Kassie Pereira APRN-ELIAS [address] [place] [address] PCP - General Family Medicine 09/21/22 documented as of this encounter
--- OUTSIDE RECORDS SUMMARY | 2025-02-03 13:34 | XMS_ITS | Encounter Summary ---
Author Organization [facility] Address [address] [place] [address] Care Team Providers Care Product Transfer Pumper Name Role Phone Mary Alexis CNM Unavailable Radhika Llanos SHADOWGRAPH SCALE OPERATOR Unavailable Kassie Pereira SHADOWGRAPH SCALE OPERATOR Unavailable [phone] Encounter Details Date Type Department Care Team (Late Contact Info) Description 01/02/2023 Abstract [facility] [address] [place] [address] Mary Alexis, CNM [address] [place] [address] Social History Tobacco Use Types Packs/Day Years Used Date Smoking Tobacco: Never Alcohol Use Standard Drinks/Week Comments Never 0 (1 standard drink = 0.6 oz pur e alcohol) caffeine: 2-3 cups/day Comments Yes Sex and Gender Information Value Date Recorded Sex Assigned at Not on file Legal Sex Female 7:38 PM EDT Gender Identity Not on file Sexual Orientation Not on file COVID-19 Exposure Response Date Recorded In the last 10 days, have yo u been in contact with someone who was confirmed or suspected to have Coronavirus/COVID-19? No / Unsure 12/18/2022 8:54 AM EDT documented as of this encounter Plan of Treatment Upcoming Encounters Date Type Department Care Team (Late Contact Info) Description 01/06/2026 2:00 PM EDT Office Visit [facility] [address] [place] [address] Mary Alexis CNM [address] [place], [place] [address] documented as of this encounter Visit Diagnoses Not on filedocumented in this encounter Care Teams Product Transfer Pumper Relationship Specialty Start Date End Date Radhika Llanos NP [address] [place] [phone] PCP - [place] [employer] 11/03/22 Mary Alexis CNM [address] [facility], [place] [address] Obstetrics and Gynecology 10/25/22 Kassie Pereira NP [address] [place] [address] Referring Physician Family Medicine 12/02/23 documented as of this encounter
--- OUTSIDE RECORDS SUMMARY | 2025-02-03 13:34 | XMS_ITS | Encounter Summary ---
Author Organization [facility] Address [address] [place] [address] Care Team Providers Care Dye Tub Tender Name Role Phone Mary Alexis CNM Unavailable [phone] Radhika Llanos ELEMENTARY MATH TUTOR Unavailable [phone] Kassie Pereira ELEMENTARY MATH TUTOR Unavailable [phone] Encounter Details Date Type Department Care Team (Late Contact Info) Description 12/26/2022 Abstract [facility] [address] [place] [address] Mary Alexis, CNM [address] [place] [address] Social History Tobacco Use Types [...] PM EDT Office Visit [facility] [address] [place] [address] Mary Alexis CNM [address] [place], [place] [phone] documented as of this encounter Visit Diagnoses Not on filedocumented in this encounter Care Teams Dye Tub Tender Relationship Specialty Start Date End Date Radhika Llanos NP [address] [place] [address] PCP - [place] [employer] 11/03/22 Mary Alexis CNM [address] [facility], [place] [address] Obstetrics and Gynecology 10/25/22 Kassie Pereira NP [address] [place] [address] Referring Physician Family Medicine 12/02/23 documented as of this encounter
--- OUTSIDE RECORDS SUMMARY | 2025-02-03 13:34 | XMS_ITS | Encounter Summary ---
Author Organization [facility] Address [facility] [place]-[id number] [address] [place] [address] Care Team Providers Care S3B Multi Sensor Operator Name Role Phone NellieKassie perez APRN-DIGESTER CAPPER Primary Care Provide r Encounter Details Date Type Department Care Team (Late st Contact Info) Description 03/08/2023 Telephone [facility] - [facility] [address] [place] [address] Miriam Handley MD Social History Tobacco Use Types Packs/Day Years Used Date Smoking Tobacco: Former Vaping/E-cigarettes Quit: 2021 Smokeless Tobacco: Never Alcohol Use Standard Drinks/Week Comments Not Currently 0 (1 standard drink = 0.6 oz pur e alcohol) Overall Financial Resource Strain (CARDIA) Answe r Date Recorded How hard is it for you to pa y for the very basics like food, housing, medical care, and heating? Not hard at all 12/27/2022 PHQ-2 Answer Date Recorded Total Score 0 09/13/2021 PRAPARE - Transportation Answer Date Re corded In the past 12 months, has l ack of transportation kept you from medical appointments or from getting medications? No 12/05 In the past 12 months, has l ack of transportation kept you from meetings, work, or from getting things needed for daily living? No 12/27/2022 Housing Instability Answer Date Recorde d Are you worried or concerned that in the next two months you may not have stable housing that you own, rent or stay in as a part of a household? No 12/27/2022 Childcare Answer Date Recorded Childcare Unknown 10/15/2018 [...] PM EDT documented as of this encounter Miscellaneous Notes * Telephone Encounter - Miriam Handley MD - 03/08/2023 12:55 PM EDT Minnie, Can you please schedule patient for 1 week incision check? Thank you! Miriam documented in this encounter Plan of Treatment Upcoming Encounters Date Type Department Care Team (Late st Contact Info) Description 02/03/2025 4:30 PM EDT Appointment [facility] [address] [place] [address] Morbid obesity (CMS-HCC); Fatigue, unspecified type 12/02/2025 1:30 PM EDT Office Visit [facility] [address] [place] [address] Kassie Pereira, CERTIFIED CODER-DIGESTER CAPPER [address] [place] [address] documented as of this encounter Visit Diagnoses Not on filedocumented in this encounter Additional Health Concerns Infection Onset Date Last Indicated Resolved Time Enteric Rule-Out 12/04/2023 12/04/2023 12/04/2023 4:03 PM EDT COVID-19 Rule-Out 02/19/2024 02/19/2024 02/19/2024 2:02 PM EDT Assessment Noted Time PHQ-9 Depression Total Score: 0 09/14/19 22 1:00 PM EDT A Body Mass Index follow-up plan has been documented for the patient 07/23/2022 3:31 PM EDT documented as of this encounter Care Teams S3B Multi Sensor Operator Relationship Specialty Start Date End Date Kassie Pereira APRN-ELIAS [address] [place] [address] PCP - General Family Medicine 09/21/22 documented as of this encounter
--- OUTSIDE RECORDS SUMMARY | 2025-02-03 13:34 | XMS_ITS | Encounter Summary ---
Author Organization [facility] Address [address] [place] [address] Care Team Providers Care Ground Worker Name Role Phone Mary Alexis CNM Unavailable [phone] Radhika Llanos APPOINTMENT SCHEDULER Unavailable Kassie Pereira APPOINTMENT SCHEDULER Unavailable [phone] Encounter Details Date Type Department Care Team (Late Contact Info) Description 12/19/2022 Abstract [facility] [address] [place] [address] Mary Alexis, CNM [address] [place] [address] Social History Tobacco Use Types [...] PM EDT Office Visit [facility] [address] [place] [address] Mary Alexis CNM [address] [place], [place] [phone] documented as of this encounter Visit Diagnoses Not on filedocumented in this encounter Care Teams Ground Worker Relationship Specialty Start Date End Date Radhika Llanos NP [address] [place] [address] PCP - [place] [employer] 11/03/22 Mary Alexis CNM [address] [facility], [place] [address] Obstetrics and Gynecology 10/25/22 Kassie Pereira NP [address] [place] [address] Referring Physician Family Medicine 12/02/23 documented as of this encounter
--- OUTSIDE RECORDS SUMMARY | 2025-02-03 13:34 | XMS_ITS | Encounter Summary ---
Author Organization [employer] tem Address [facility] [place]-[id number] [address] [place] [address] Care Team Providers Care Mechanical Equipment Test Engineer Name Role Phone NellieKassie perez CHIARA-FOUNDRY TENDER Primary Care Provide r Encounter Details Date Type Department Care Team (Latest Contact Info) Description 01/20/2025 Travel Social History Tobacco Use Types Packs/Day Years Used Date Smoking Tobacco: Former Vaping/E-cigarettes Quit: 2021 Smokeless Tobacco: Never Alcohol Use Standard Drinks/Week Comments Not Currently 0 (1 standard drink = 0.6 oz pur e alcohol) [facility] Utilities Answer Date Recorded In the [...] things needed for daily living? No 09/11/2023 [place] Depression Scale Answer Date Recorded [place] Depression Scale Total 6 04/03/2023 The thought [...] Info) Description 02/03/2025 4:30 PM EDT Appointment [facility] [address] [place] [address] Morbid obesity ([facility]-HCC); Fatigue, unspecified type 12/02/2025 1:30 PM EDT Office Visit [facility] [address] [place] [address] Kassie Pereira APRN-CNP [address] [place], [place] [phone] documented as of this encounter Visit Diagnoses Not on filedocumented in this encounter Additional Health Concerns Assessment Noted Time PHQ-9 Depression Total Score: 0 01/07/20 25 1:32 PM EDT A Body Mass Index follow-up plan has been documented for the patient 01/06/2025 2:01 PM EDT documented as of this encounter Care Teams Mechanical Equipment Test Engineer Relationship Specialty Start Date End Date Kassie Pereira APRN-CNP [address] [place] [address] PCP - General Family Medicine 09/21/22 documented as of this encounter
--- OUTSIDE RECORDS SUMMARY | 2025-02-03 13:34 | XMS_ITS | Encounter Summary ---
Author Organization [facility] tem Address [facility] [place][id number] [address] [place] [address] Care Team Providers Care Sheet Rock Taper Helper Name Role Phone Kassie Pereira CLINICAL TRIALS SPECIALIST-SUSTAINABLE DEVELOPMENT POLICY ANALYST Primary Care Provide r Encounter Details Date Type Department Care Team (Latest Contact Info) Description 12/04/2024 Results Follow-Up [facility] [address] [place] [address] Kassie Pereira APRN-CNP [address] [place] [address] CBC auto differential, Comprehensive metabolic panel, Lipid profile Social History Tobacco Use Types Packs/Day Years Used Date Smoking Tobacco: Former Vaping/E-cigarettes Quit: 2021 Smokeless Tobacco: Never Alcohol Use Standard Drinks/Week Comments Not Currently 0 (1 standard drink = 0.6 oz pur e alcohol) [facility] Utilities Answer Date Recorded In the [...] things needed for daily living? No 09/11/2023 [place] Depression Scale Answer Date Recorded [place] Depression Scale Total 6 04/03/2023 The thought [...] [facility] [address] [place] [address] Morbid obesity (CMS-HCC); Fatigue, unspecified type 12/02/2025 1:30 PM EDT Office Visit [facility] [address] [place] [address] Kassie Pereira, CLINICAL TRIALS SPECIALIST-SUSTAINABLE DEVELOPMENT POLICY ANALYST [address] [place] [address] documented as of this encounter Visit Diagnoses Not on filedocumented in this encounter Additional Health Concerns Assessment Noted Time PHQ-9 Depression Total Score: 0 12/02/19 25 1:32 PM EDT A Body Mass Index follow-up plan has been documented for the patient 12/03/2024 12:08 PM EDT documented as of this encounter Care Teams Sheet Rock Taper Helper Relationship Specialty Start Date End Date Kassie Pereira APRN-ELIAS [address] [facility] [place] [address] PCP - General Family Medicine 09/21/22 documented as of this encounter
--- OUTSIDE RECORDS SUMMARY | 2025-02-03 13:34 | XMS_ITS | Encounter Summary ---
Author Organization [facility] [employer] [facility] tem Address [facility][id number] [address] [place] [address] Care Team Providers Care Lumber Cutter Name Role Phone Kassie Pereira MANAGER VIDEO-POLITICAL SCIENCE RESEARCH ASSISTANT Primary Care Provide r Encounter Details Date Type Department Care Team (Late st Contact Info) Description 01/05/2025 Orders Only [facility] [address] [place] [address] Kassie Pereira APRN-CNP [address] [place] [address] Social History Tobacco Use Types Packs/Day Years Used Date Smoking Tobacco: Former Vaping/E-cigarettes Quit: 2021 Smokeless Tobacco: Never Alcohol Use Standard Drinks/Week Comments Not Currently 0 (1 standard drink = 0.6 oz pur e alcohol) [facility] Utilities Answer Date Recorded In the past 12 months has [employer], gas, oil, or water [employer] threatened to shut off services in your [...] things needed for daily living? No 09/11/2023 [place] Depression Scale Answer Date Recorded [place] Depression Scale Total 6 04/03/2023 The thought [...] got money to buy more. Never True 01/06/2025 Within the past 12 months th e food we bought just didn't last and we didn't have money to get more. Never True 01/06/2025 Purpose - Life Answer Date Recorded Purpose [...] [facility] [address] [place] [address] Morbid obesity (CMS-HCC); Fatigue, unspecified type 12/02/2025 1:30 PM EDT Office Visit [facility] [address] [place] [address] Kassie Pereira, MANAGER VIDEO-POLITICAL SCIENCE RESEARCH ASSISTANT [address] [place], [place] [address] documented as of this encounter Visit Diagnoses Not on filedocumented in this encounter Additional Health Concerns Assessment Noted Time PHQ-9 Depression Total Score: 0 12/02/19 25 1:32 PM EDT A Body Mass Index follow-up plan has been documented for the patient 12/03/2024 12:08 PM EDT documented as of this encounter Care Teams Lumber Cutter Relationship Specialty Start Date End Date Kassie Pereira APRN-POLITICAL SCIENCE RESEARCH ASSISTANT [address] [place] [address] PCP - General Family Medicine 09/21/22 documented as of this encounter
--- OUTSIDE RECORDS SUMMARY | 2025-02-03 13:34 | XMS_ITS | Encounter Summary ---
Author Organization [facility] Address [address] [place] [address] Care Team Providers Care Winch Runner Name Role Phone Mary AlexisM Unavailable Kassie Pereira NP Unavailable [phone] Encounter Details Date Type Department Care Team (Late st Contact Info) Description 02/08/2023 Abstract [facility] [address] [place] [address] Mary Alexis CN [address] [place], [place] [address] Social History Tobacco Use Types Packs/Day Years [...] PM EDT Office Visit [facility] [address] [place] [address] Mary Alexis CNM [address] [place], [place] [address] documented as of this encounter Visit Diagnoses Not on filedocumented in this encounter Care Teams Winch Runner Relationship Specialty Start Date End Date Mary Alexis CNM [address] [place] [address] Obstetrics and Gynecology 10/25/22 Kassie Pereira NP [address] [place] [address] Referring Physician Family Medicine 12/02/23 documented as of this encounter
--- OUTSIDE RECORDS SUMMARY | 2025-02-03 13:34 | XMS_ITS | Encounter Summary ---
Author Organization [employer] Address [facility] [place]-[id number] [address] [place] [address] Care Team Providers Care Hand Shaper Name Role Phone Kassie Pereira COMMUNITY SUPPORT WORKER-VIOLIN MAKER HAND Primary Care Provide r Encounter Details Date Type Department Care Team (Late st Contact Info) Description 03/20/2022 Telephone [facility] [address] [facility] [place] [address] Velvet Hammond LPN Social History Tobacco Use Types Packs/Day Years Used Date Smoking Tobacco: Every Day Vaping/E-cigarettes Smokeless Tobacco: Never Alcohol Use Standard [...] have Coronavirus / COVID-19? No / Unsure 03/13/2022 12:03 PM EST documented as of this encounter Miscellaneous Notes * Telephone Encounter - Velvet SYED Hammond - 03/20/2022 10:52 AM EST Images from the original note were not included. Pt no showed today and if you look below, she has a history of cancelling and No showing. Because of this will not be able to rescheduling her again. documented in this encounter Plan of Treatment Upcoming Encounters Date Type Department Care Team (Late st Contact Info) Description 02/03/2025 4:30 PM EDT Appointment [facility] - Total Rehab [address] [facility] [place] [place] [address] Morbid obesity ([facility]-HCC); Fatigue, unspecified type 12/02/2025 1:30 PM EDT Office Visit [facility] [address] [facility] [place] [address] Kassie Pereira APRN-CNP [address] [place] [address] documented as of this encounter Visit Diagnoses [...] plan has been documented for the patient 03/07/2022 4:55 PM EDT documented as of this encounter Care Teams Hand Shaper Relationship Specialty Start Date End Date Kassie Pereira APRN-CNP [address] [facility] [place] [address] PCP - General Family Medicine 09/21/22 documented as of this encounter
--- OUTSIDE RECORDS SUMMARY | 2025-02-03 13:34 | XMS_ITS | Encounter Summary ---
Author Organization [facility] Address [address] [place] [address] Care Team Providers Care Concrete Engineering Technician Name Role Phone Mary AlexisM Unavailable [phone] Kassie Pereira NP Unavailable [phone] Encounter Details Date Type Department Care Team (Late st Contact Info) Description 01/09/2023 Abstract [facility] [address] [place] [address] Mary Alexis CNM [address] [place] [address] Social History Tobacco Use Types [...] PM EDT Office Visit [facility] [address] [place] [address] Mary Alexis CNM [address] [place], [place] [address] documented as of this encounter Visit Diagnoses Not on filedocumented in this encounter Care Teams Concrete Engineering Technician Relationship Specialty Start Date End Date Mary Alexis CNM [address] [place] [address] Obstetrics and Gynecology 10/25/22 Kassie Pereira NP [address] [place], [place] [address] Referring Physician Family Medicine 12/02/23 documented as of this encounter
--- OUTSIDE RECORDS SUMMARY | 2025-02-03 13:34 | XMS_ITS | Encounter Summary ---
Author Organization [facility] Address [address] [place] [address] Care Team Providers Care Cloth Bleaching Range Operator Chief Name Role Phone Mary Alexis Unavailable [phone] Kassie Pereira NP Unavailable [phone] Reason for Visit * Reason Comments Med Refill Encounter Details Date Type Department Care Team (Late st Contact Info) Description 01/10/2023 Refill [facility] OBGYN [address] [place] [phone] Mary Alexis CNM [address] [place], [place] [phone] Heartburn during in second trimester ([facility]) Social History Tobacco Use Types Packs/Day Years [...] AM EDT documented as of this encounter Miscellaneous Notes * Telephone Encounter - Mary Alexis CNM - 01/15/2023 11:42 AM EDT Patient under care of physicians at [facility] documented in this encounter Plan of Treatment Upcoming Encounters Date Type Department Care Team (Late st Contact Info) Description 01/06/2026 2:00 PM EDT Office Visit [facility] [address] [place] [address] Mary Alexis CNM [address] [place] [address] documented as of this encounter Visit Diagnoses Diagnosis Heartburn during in second trimester ([facility]) documented in this encounter Care Teams Cloth Bleaching Range Operator Chief Relationship Specialty Start Date End Date Mary Alexis CNM [facility] [place], [place] [phone] Obstetrics and Gynecology 10/25/22 Kassie Pereira NP [address] [place] [address] Referring Physician Family Medicine 12/02/23 documented as of this encounter
--- OUTSIDE RECORDS SUMMARY | 2025-02-03 13:34 | XMS_ITS | Encounter Summary ---
Author Organization [facility] Address [address] [place] [address] Care Team Providers Care Valve Lapper Name Role Phone Mary AlexisM Unavailable Kassie Pereira NP Unavailable [phone] Encounter Details Date Type Department Care Team (Late st Contact Info) Description 02/01/2023 Abstract [facility] [address] [place] [address] Mary Alexis CN [address] [place], [place] [phone] Social History Tobacco Use Types Packs/Day Years [...] PM EDT Office Visit [facility] [address] [place] [address] Mary Alexis CNM [address] [place], [place] [phone] documented as of this encounter Visit Diagnoses Not on filedocumented in this encounter Care Teams Valve Lapper Relationship Specialty Start Date End Date Mary Alexis CNM [address] [place] [address] Obstetrics and Gynecology 10/25/22 Kassie Pereira NP [address] [place] [address] Referring Physician Family Medicine 12/02/23 documented as of this encounter
--- OUTSIDE RECORDS SUMMARY | 2025-02-03 13:34 | XMS_ITS | Encounter Summary ---
Author Organization [facility] tem Address [id number] [address] [place] [address] Care Team Providers Care Junior Linux Administrator Name Role Phone Kassie Pereira POULTRY SLAUGHTERER-STOCK CHASER Primary Care Provide r Encounter Details Date Type Department Care Team (Late st Contact Info) Description 12/03/2024 [facility] [address] [place] [phone] Kassie Pereira APRN-CNP [address] [place] [address] Social History Tobacco Use Types Packs/Day Years Used Date Smoking Tobacco: Former Vaping/E-cigarettes Quit: 2021 Smokeless Tobacco: Never Alcohol Use Standard Drinks/Week Comments Not Currently 0 (1 standard drink = 0.6 oz pur e alcohol) [facility] Utilities Answer Date Recorded In the past 12 months has [employer], gas, oil, or water [employer] threatened to shut off services in your [...] things needed for daily living? No 09/11/2023 [place] Depression Scale Answer Date Recorded [place] Depression Scale Total 6 04/03/2023 The thought [...] encounter Miscellaneous Notes * Telephone Encounter - Natacha Jaimes - 12/03/2024 1:08 PM EDT Patient called stating that she called to set up her pulmonary appointment and they refused to set her up for an appointment. Patient had missed an appointment in 2021 and was discharged from the office. Patient is wanting to know if you have any other providers to refer her to? * Telephone Encounter - ENDY Mckeon - 12/03/2024 1:08 PM EDT She will need to see who her insurance covers. There [place] in [place] documented in this encounter Plan of Treatment Upcoming Encounters Date Type Department Care Team (Late st Contact Info) Description 02/03/2025 4:30 PM EDT Appointment [facility] [address] [facility] [place] [address] Morbid obesity (CMS-HCC); Fatigue, unspecified type 12/02/2025 1:30 PM EDT Office Visit [facility] [address] [place] [phone] Kassie Pereira APRN-CNP [address] [place], [place] [phone] documented as of this encounter Visit Diagnoses Not on filedocumented in this encounter Additional Health Concerns Assessment Noted Time PHQ-9 Depression Total Score: 0 12/02/19 25 1:32 PM EDT A Body Mass Index follow-up plan has been documented for the patient 12/03/2024 12:08 PM EDT documented as of this encounter Care Teams Junior Linux Administrator Relationship Specialty Start Date End Date Kassie Pereira APRN-CNP [address] [place], [place] [phone] PCP - General Family Medicine 09/21/22 documented as of this encounter
--- OUTSIDE RECORDS SUMMARY | 2025-02-03 13:35 | XMS_ITS | Encounter Summary ---
Author Organization [facility] tem Address [place]-[id number] [address] [place] [address] Care Team Providers Care Cook Apprentice Name Role Phone Kassie Pereira WAREHOUSE ORDER PULLER-NEWS GATHERING TECHNICIAN Primary Care Provide r Reason for Visit * Reason Comments Med Refill Encounter Details Date Type Department Care Team (Late st Contact Info) Description 10/05/2021 Refill [facility] [address] [place] [phone] Kassie Pereira APRN-CNP [address] [place] [address] Social History Tobacco Use Types Packs/Day Years [...] suspected to have Coronavirus/COVID-19? No / Unsure 09/13/2021 1:29 PM EDT documented as of this encounter Plan of Treatment Upcoming Encounters Date Type Department Care Team (Late st Contact Info) Description 02/03/2025 4:30 PM EDT [facility] [address] [facility] [place] [phone] Morbid obesity ([facility]); Fatigue, unspecified type 12/02/2025 1:30 PM EDT Office Visit [facility] [address] [facility] [place] [phone] Kassie Pereira APRN-CNP [address] [place] [address] documented as of this encounter Visit Diagnoses [...] plan has been documented for the patient 09/13/2021 2:35 PM EDT documented as of this encounter Care Teams Cook Apprentice Relationship Specialty Start Date End Date Kassie Pereira APRN-CNP [address] [place] [address] PCP - General Family Medicine 09/21/22 documented as of this encounter
--- OUTSIDE RECORDS SUMMARY | 2025-02-03 13:35 | XMS_ITS | Encounter Summary ---
Author Organization [facility] Address [address] [place] [address] Care Team Providers Care Glass Artist Name Role Phone Mary Alexis CNM Unavailable [phone] Kassie Pereira NP Unavailable [phone] Encounter Details Date Type Department Care Team (Late st Contact Info) Description 02/02/2025 Telephone [facility] [address] [place] [address] Mary Alexis, CNM [address] [place], [place] [phone] Social History Tobacco Use Types Packs/Day Years Used Date Smoking Tobacco: Never Smokeless Tobacco: Never Alcohol Use Standard Drinks/Week Comments Never 0 (1 standard drink = 0.6 oz pur e alcohol) caffeine: 2-3 cups/day PHQ-2 Answer Date Recorded Patient Health Questionnaire-2 Score 1 04/11/2023 Keyser Depression Scale Answer Date Recorded Keyser Depression Scale Total 10 05/23/2023 The thought of harming myself has occurred to me . Never 05/23/2023 Comments No Sex and Gender Information Value Date Recorded Sex Assigned at Not on file Legal Sex Female 7:38 PM EDT Gender Identity Not on file Sexual Orientation Not on file documented as of this encounter Miscellaneous Notes * Telephone Encounter - Izabella Newman - 02/02/2025 1:39 PM EDT Vm left at 12:52 Hi, this is Radhika Gonzalez. I was calling to see if I could speak with someone in Lachelle Alexis's office. I had an ultrasound done a week or 2 ago and I have not heard anything about the results yet. Corina could give me a call at [phone]. I would Appreciate it. Thank you. documented in this encounter Plan of Treatment Upcoming Encounters Date Type Department Care Team (Late st Contact Info) Description 01/06/2026 2:00 PM EDT Office Visit [facility] [address] [place] [address] Mary Alexis CNM [address] [place], [place] [phone] documented as of this encounter Visit Diagnoses Not on filedocumented in this encounter Care Teams Glass Artist Relationship Specialty Start Date End Date Mary Alexis CNM [facility] [place], [place] [phone] Obstetrics and Gynecology 10/25/[address] [facility] [place] [address] Referring Physician Family Medicine 12/02/23 documented as of this encounter
--- OUTSIDE RECORDS SUMMARY | 2025-02-03 13:35 | XMS_ITS | Encounter Summary ---
Author Organization [facility] tem Address [id number] [address] [place] [address] Care Team Providers Care Paleology Professor Name Role Phone Kassie Pereira PHYSICIAN OFFICE ASSISTANT-SHARK BIOLOGIST Primary Care Provide r Encounter Details Date Type Department Care Team (Late st Contact Info) Description 01/03/2021 [facility] [address] [place] [phone] Kassie Pereira APRN-CNP [address] [place] [address] Social History Tobacco Use Types Packs/Day Years Used Date Smoking Tobacco: Never Smokeless Tobacco: Never Alcohol Use Standard Drinks/Week Comments Not Currently 0 (1 standard drink = 0.6 oz pur e alcohol) PHQ-2 Answer Date Recorded Total Score 0 12/05/2020 Childcare Answer Date Recorded Childcare Unknown 10/15/2018 [...] have Coronavirus / COVID-19? No / Unsure 12/05/2020 1:50 PM EDT documented as of this encounter Plan of Treatment Upcoming Encounters Date Type Department Care Team (Late st Contact Info) Description 02/03/2025 4:30 PM EDT Appointment [facility] [address] [place] [phone] Morbid obesity (CMS-HCC); Fatigue, unspecified type 12/02/2025 1:30 PM EDT Office Visit [facility] [address] [place] [phone] Kassie Pereira APRN-CNP [address] [place] [address] documented as of this encounter Visit Diagnoses Not on filedocumented in this encounter Additional Health Concerns Infection Onset Date Last Indicated Resolved Time Enteric Rule-Out 12/04/2023 12/04/2023 12/04/2023 4:03 PM EDT COVID-19 Rule-Out 02/19/2024 02/19/2024 02/19/2024 2:02 PM EDT Assessment Noted Time PHQ-9 Depression Total Score: 0 12/06/19 21 2:00 PM EDT A Body Mass Index follow-up plan has been documented for the patient 12/05/2020 2:55 PM EDT documented as of this encounter Care Teams Paleology Professor Relationship Specialty Start Date End Date Kassie Pereira APRN-CNP [address] [place] [address] PCP - General Family Medicine 09/21/22 documented as of this encounter
--- OUTSIDE RECORDS SUMMARY | 2025-02-03 13:35 | XMS_ITS | Clinical Summary ---
Author Organization [facility] Address [address] [place] [address] Care Team Providers Care Public Health Doctor Name Role Phone Mary Alexis CNM Unavailable Kassie Pereria NP Unavailable [phone] Allergies Active Allergy Reactions Criticality Noted Date Comments Penicillins Rash Low 09/24/2016 Medications escitalopram (Lexapro) 10 MG tablet Take 10 mg by mouth in the morning. 5 Active omeprazole (PriLOSEC) [address] capsule Take 20 mg by mouth in the morning. 5 Active FLUoxetine (PROzac) 10 MG capsuleIndicatio ns:Current mild episode of major depressive disorder without prior episode Take 1 capsule (10 mg) by mouth in the morning. 30 capsule 11 3 01/06/20 25 Discontinu ed(Therapy completed) FLUoxetine (PROzac) 10 MG capsuleIndicatio ns:Anxiety, generalized Take 2 capsules (20 mg) by mouth in the morning. 30 capsule 2 4 01/06/20 25 Discontinu ed(Therapy completed) Active Problems Problem Noted Date Diagnosed Date PTSD (post-traumatic stress disorder) 10/24/2023 Encounters Date Type Department Care Team Description 02/02/2025 Telephone [facility] [address] [place] [address] Mary Alexis CNM 01/14/2025 2:00 PM EDT Ancillary Procedure [facility] [address] [facility] [address] [place] [address] Abnormal uterine bleeding 01/14/2025 Travel 01/14/2025 Results Follow-Up [facility] [place] [place] [phone] Uyen You MA THINPREP IMAGING PAP AND HPV DNA REFLEX HPV 16,18, US Pelvis w/ TV 01/05/2025 2:00 PM EDT Office Visit [facility] [address] [place] [phone] Mary Alexis CNM Normal gynecologic examination; Screening for cervical cancer; Abnormal uterine bleeding from Last 3 Months Family History Medical History Relation Name Comments Bipolar disorder Brother Schizophrenia Brother Depression Father Tuberculosis Father disabled Father Diabetes Maternal Grandfather Thyroid cancer Maternal Grandmother Depression Mother Lupus Mother prescription pain pill abuse Mother been to rehab Colon cancer Paternal Grandfather Relation Name Status Comments Brother patient has 4 b rothers Daughter Alive Father Alive Maternal Grandfather Alive Maternal Grandmother Alive Mother Alive Paternal Grandfather Alive Paternal Grandmother Alive Son (2) Alive Social History Tobacco Use Types Packs/Day Years Used Date Smoking Tobacco: Never Smokeless Tobacco: Never Alcohol Use Standard Drinks/Week Comments Never 0 (1 standard drink = 0.6 oz pur e alcohol) caffeine: 2-3 cups/day PHQ-2 Answer Date Recorded Patient Health Questionnaire-2 Score 1 04/11/2023 [place] Depression Scale Answer Date Recorded [place] Depression Scale Total 10 05/23/2023 The thought of harming myself has occurred to me . Never 05/23/2023 Comments No Sex and Gender Information Value Date Recorded Sex Assigned at Not on file Legal Sex Female 7:38 PM EDT Gender Identity Not on file Sexual Orientation Not on file Last Filed Vital Signs Vital Sign Reading Time Taken Comments Blood Pressure 120/80 01/05/2025 2:05 PM EDT Pulse - - Temperature - - Respiratory Rate - - Oxygen Saturation - - Inhaled Oxygen Concentration - - Weight 123 kg (271 lb) 01/05/2025 2:05 PM EDT Height 167.6 cm (5' 6 ) 04/11/2023 2:11 PM EST Body Mass Index 43.74 04/11/2023 2:11 PM EST Plan of Treatment Upcoming Encounters Date Type Department Care Team (Late st Contact Info) Description 01/06/2026 2:00 PM EDT Office Visit [facility] [address] [place] [phone] Mary AlexisKWAN [address] [place] [address] Procedures Procedure Name Priority Date/Time Associated Diagnosis Comments US PELVIC COMPLETE W/ TV Routine 01/14/2025 2:21 PM EDT Abnormal uterine bleeding THINPREP IMAGING PAP AND HPV DNA REFLEX HPV 16,18 Routine 01/05/2025 4:29 PM EDT Screening for cervical cancer from Last 3 Months Results * US Pelvis w/ TV (01/14/2025 2:21 PM EDT) Anatomical Region Laterality Modality Pelvis Ultrasound 01/14/2025 3:15 PM EDT Impressions 01/14/2025 3:23 PM EDT Normal uterus/endometrium TRANSCRIBED BY: ELECTRONICALLY SIGNED BY: Alvaro Jett MD Narrative 01/14/2025 3:23 PM EDT FINDINGS: Uterus 10.6 x 5.0 x 5.0 cm Endometrium 4 mm Right ovary 2.2 x 2.4 x 3.5 cm Left ovary Not seen The uterus is normal in size and orientation. No worrisome mass lesions are seen. Endometrium appears unremarkable. Right ovary is normal for this age. No pelvic fluid. Left ovary not identified, no left adnexal mass. Procedure Note Alvaro Jett MD - 01/14/2025 FINDINGS: Uterus 10.6 x 5.0 x 5.0 cm Endometrium 4 mm Right ovary 2.2 x 2.4 x 3.5 cm Left ovary Not seen The uterus is normal in size and orientation. No worrisome mass lesionsare seen. Endometrium appears unremarkable. Right ovary is normal for this age. No pelvic fluid. Left ovary notidentified, no left adnexal mass. IMPRESSION: Normal uterus/endometrium TRANSCRIBED BY: ELECTRONICALLY SIGNED BY: Alvaro Jett MD Mary Leon [facility] IMG US PROCEDURES Final Resu lt * THINPREP IMAGING PAP AND HPV DNA REFLEX HPV 16,18 (01/05/2025 4:29 PM EDT) CLINICAL INFORMATION [facility] Comment:None given LMP [facility] Comment:NONE GIVEN PREV. PAP [facility] Comment:NONE GIVEN PREV. BX [facility] Comment:NONE GIVEN SOURCE [facility] Comment:None given STATEMENT OF ADEQUACY [facility] Comment: Satisfactory for evaluation. Endocervical/transformation zone component present. INTERPRETATION/RESU LT [facility] Comment: Cytology Results: Negative for intraepithelial lesion or malignancy. COMMENT [facility] Comment: This Pap test has been evaluated with the ThinPrep(R) Imaging System. HYDRATOR OPERATOR [facility] Comment: PCJ, SCT(ASCP) CT screening location: [facility] [place] [address]. CLIA: [id number] REVIEW HYDRATOR OPERATOR [facility] Comment: MRS, CT(ASCP) CT screening location: [facility] [place] [address]. CLIA: [id number] (ALWAYS MESSAGE) [facility] Comment: EXPLANATORY NOTE: The Pap is a screening test for cervical cancer. It is not a diagnostic test and is subject to false negative and false positive results. It is most reliable when a satisfactory sample, regularly obtained, is submitted with relevant clinical findings and history, and when the Pap result is evaluated along with historic and current clinical information. HPV DNA, HIGH RISK, CERVICAL Not Detected NOT DETECTED [facility] Comment: Not Detected High Risk HPV types (16,18,31,33,35,39,45,51,52, 56,58,59,66,68) were not detected. Other HPV types which cause anogenital lesions may be present. The significance of the other types of HPV in malignant processes has not been established. Methodology: Real Time PCR Swab Cervical swab / Unknown 01/05/2025 4:29 PM EDT 01/06/2025 2:37 AM EDT Narrative Resulting Agency Comment Performing Organization Information Site ID: [id number] Name: [facility] Address: [address] [place] [address] [place] [address] Director: Red Jackson M.D.,PhD Site ID: [id number] Name: [facility] Address: [address] [place] [address] Director: Tree Betancourt MD us Mary Alexis CNM LAB CYTOLOGY ORDERABLES Melissa mcadams Result [facility] from Last 3 Months [place] [facility] Address: [facility] [id number] [place] [phone] Care Teams Public Health Doctor Relationship Specialty Start Date End Date Mary Alexis CNM [address] [place] [address] Obstetrics and Gynecology 10/25/22 Kassie Pereira NP [address] [place] [address] Referring Physician Family Medicine 12/02/23
--- OUTSIDE RECORDS SUMMARY | 2025-02-03 13:35 | XMS_ITS | Encounter Summary ---
Author Organization [facility] tem Address [id number] [address] [place] [address] Care Team Providers Care Brim Curler Name Role Phone Kassie Pereira DIRECTOR [employer]-GEOCHEMICAL LABORATORY TECHNICIAN Primary Care Provide r Encounter Details Date Type Department Care Team (Late st Contact Info) Description 04/11/2020 Orders Only [facility] [address] [place] [address] Kassie Pereira APRN-CNP [address] [place] [address] Social History Tobacco Use Types Packs/Day Years Used Date Smoking Tobacco: Never Smokeless Tobacco: Never Alcohol Use Standard Drinks/Week Comments Not Currently 0 (1 standard drink = 0.6 oz pur e alcohol) PHQ-2 Answer Date Recorded Total Score 0 03/22/2020 Childcare Answer Date Recorded Childcare Unknown 10/15/2018 Employment Answer Date Recorded Employment Unknown 10/15/2018 Comments No Sex and Gender Information Value [...] have Coronavirus / COVID-19? No / Unsure 04/12/2020 6:33 PM EST documented as of this encounter Plan of Treatment Upcoming Encounters Date Type Department Care Team (Late st Contact Info) Description 02/03/2025 4:30 PM EDT Appointment [facility] [address] [place] [phone] Morbid obesity (CMS-HCC); Fatigue, unspecified type 12/02/2025 1:30 PM EDT Office Visit [facility] [address] [place] [phone] Kassie Pereira APRN-CNP [address] [place] [place], [place] [phone] documented as of this encounter Visit Diagnoses Not on filedocumented in this encounter Additional Health Concerns Infection Onset Date Last Indicated Resolved Time Enteric Rule-Out 12/04/2023 12/04/2023 12/04/2023 4:03 PM EDT COVID-19 Rule-Out 02/19/2024 02/19/2024 02/19/2024 2:02 PM EDT Assessment Noted Time PHQ-9 Depression Total Score: 0 03/22/20 20 3:00 PM EST A Body Mass Index follow-up plan has been documented for the patient 03/22/2020 4:53 PM EST documented as of this encounter Care Teams Brim Curler Relationship Specialty Start Date End Date Kassie Pereira APRN-CNP [address] [place], [place] [phone] PCP - General Family Medicine 09/21/22 documented as of this encounter
--- OUTSIDE RECORDS SUMMARY | 2025-02-03 13:35 | XMS_ITS | Encounter Summary ---
Author Organization [facility] tem Address [id number] [address] [place] [address] Care Team Providers Care Property Management Specialist Name Role Phone Kassie Pereira APRN-PATENT LEGAL ASSISTANT Primary Care Provide r Encounter Details Date Type Department Care Team (Late st Contact Info) Description 06/29/2020 Orders Only [facility] [address] [place] [phone] Nayeli Markham LPN Sjogren's syndrome, with unspecified organ involvement ([facility]) Social History Tobacco Use Types Packs/Day Years [...] [facility] [address] [place] [phone] Morbid obesity ([facility]); Fatigue, unspecified type 12/02/2025 1:30 PM EDT Office Visit [facility] [address] [place] [phone] Kassie Pereira APRN-CNP [address] [facility] [place], [place] [phone] documented as of this encounter Procedures Procedure Name Priority Date/Time Associated Diagnosis Comments AMB REFERRAL TO RHEUMATOLOGY Routine 06/27/2020 Sjogren's syndrome, with unspecified organ involvement ([facility]) documented in this encounter Results * Ambulatory referral to Rheumatology (06/27/2020) 06/27/2020 us Kassie SCHUMACHER OUTPATIENT REFERRAL O RDERABLES Final Result MANUALLY TRANSCRIBED RESULTS documented in this encounter Visit Diagnoses Diagnosis Sjogren's syndrome, with unspecified organ involvement Morbid obesity ([facility]) Morbid obesity Fatigue, unspecified type documented in [...] documented as of this encounter Care Teams Property Management Specialist Relationship Specialty Start Date End Date Kassie Pereira APRN-CNP [address] [facility] [place], [place] [phone] PCP - General Family Medicine 09/21/22 documented as of this encounter
--- OUTSIDE RECORDS SUMMARY | 2025-02-03 13:35 | XMS_ITS | Encounter Summary ---
Author Organization [facility] Address [address] [place] [address] Care Team Providers Care Sports Book Server Name Role Phone Mary Alexis CNM Unavailable [phone] Kassie Pereira NP Unavailable [phone] Encounter Details Date Type Department Care Team (Late st Contact Info) Description 01/14/2025 Results Follow-Up [facility] [address] [place] [address] Uyen You MA THINPREP IMAGING PAP AND HPV DNA REFLEX HPV 16,18, US Pelvis w/ TV Social History Tobacco Use Types Packs/Day Years Used Date Smoking Tobacco: Never Smokeless Tobacco: Never Alcohol Use Standard Drinks/Week Comments Never 0 (1 standard drink = 0.6 oz pur e alcohol) caffeine: 2-3 cups/day PHQ-2 Answer Date Recorded Patient Health Questionnaire-2 Score 1 04/11/2023 [place] Depression Scale Answer Date Recorded [place] Depression Scale Total 10 05/23/2023 The thought [...] 2:00 PM EDT Office Visit [facility] [address] [place] [address] Mary Alexis, CNM [address] [place], [place] [phone] documented as of this encounter Visit Diagnoses Not on filedocumented in this encounter Care Teams Sports Book Server Relationship Specialty Start Date End Date Mary Alexis CNM [address] [place] [address] Obstetrics and Gynecology 10/25/22 Kassie Pereira NP [address] [place], [place] [phone] Referring Physician Family Medicine 12/02/23 documented as of this encounter
--- OUTSIDE RECORDS SUMMARY | 2025-02-03 13:35 | XMS_ITS | Encounter Summary ---
Author Organization [facility] [employer] [facility] Address [id number] [address] [place] [address] Care Team Providers Care Casino Cage Manager Name Role Phone Kassie Pereira APRN-POWER SWEEPER OPERATOR Primary Care Provide r Reason for Visit * Reason Comments Med Refill Encounter Details Date Type Department Care Team (Late st Contact Info) Description 04/30/2020 Refill [facility] [address] [place] [phone] Kassie Pereira APRN-CNP [address] [place] [address] Social History Tobacco Use Types Packs/Day Years [...] 02/03/2025 4:30 PM EDT Appointment [facility] [address] [place] [phone] Morbid obesity (CMS-HCC); Fatigue, unspecified type 12/02/2025 1:30 PM EDT Office Visit [facility] [address] [place] [phone] Kassie Pereira APRN-CNP [address] [place], [place] [phone] documented as of this encounter Visit Diagnoses [...] documented as of this encounter Care Teams Casino Cage Manager Relationship Specialty Start Date End Date Kassie Pereira APRN-CNP [address] [place], [place] [phone] PCP - General Family Medicine 09/21/22 documented as of this encounter
--- OUTSIDE RECORDS SUMMARY | 2025-02-03 13:35 | XMS_ITS | Encounter Summary ---
Author Organization [facility] [employer] [facility] tem Address [facility] [id number] [address] [place] [address] Care Team Providers Care Executive Director Of Nursing Name Role Phone Kassie Pereira APRN-PACKING INSPECTOR Primary Care Provide r Encounter Details Date Type Department Care Team (Late st Contact Info) Description 12/04/2022 Orders Only [facility]- Medicine at [facility] [address] [place] [phone] Uyen Bird RN Social History Tobacco Use Types Packs/Day [...] Info) Description 02/03/2025 4:30 PM EDT [facility] [address] [place] [phone] Morbid obesity (CMS-HCC); Fatigue, unspecified type 12/02/2025 1:30 PM EDT Office Visit [facility] [address] [facility] [facility] [place] [phone] Kassie Pereira APRN-CNP [address] [place], [place] [phone] documented as of this encounter Visit Diagnoses [...] documented as of this encounter Care Teams Executive Director Of Nursing Relationship Specialty Start Date End Date Kassie Pereira APRN-CNP [address] [place], [place] [phone] PCP - General Family Medicine 09/21/22 documented as of this encounter
--- OUTSIDE RECORDS SUMMARY | 2025-02-03 13:35 | XMS_ITS | Encounter Summary ---
Author Organization [facility] Address [id number] [address] [place] [address] Care Team Providers Care Cosmetic Account Coordinator Name Role Phone Kassie Pereira TWIST MAKER-LAW REPORTER Primary Care Provide r Encounter Details Date Type Department Care Team (Late st Contact Info) Description 02/13/2021 Orders Only [facility] [address] [place] [phone] Kassie Pereira APRN-CNP [address] [place] [address] Social History Tobacco Use Types Packs/Day Years Used Date Smoking Tobacco: Never Smokeless Tobacco: Never Alcohol Use Standard Drinks/Week Comments Not Currently 0 (1 standard drink = 0.6 oz pur e alcohol) PHQ-2 Answer Date Recorded Total Score 0 02/15/2021 Childcare Answer Date Recorded Childcare Unknown 10/15/2018 [...] or suspected to have Coronavirus / COVID-19? Yes 02/15/2021 1:52 PM EDT documented as of this encounter Plan of Treatment Upcoming Encounters Date Type Department Care Team (Late st Contact Info) Description 02/03/2025 4:30 PM EDT [facility] [address] [facility] [address] Morbid obesity (CMS-HCC); Fatigue, unspecified type 12/02/2025 1:30 PM EDT Office Visit [facility] [address] [place] [phone] Kassie Pereira APRN-CNP [address] [place] [address] documented as of this encounter Visit Diagnoses [...] documented as of this encounter Care Teams Cosmetic Account Coordinator Relationship Specialty Start Date End Date Kassie Pereira APRN-CNP [address] [place] [address] PCP - General Family Medicine 09/21/22 documented as of this encounter
== END 2025-02-03 13:33 | disposition home or self-care (01) ==
LOC: SLEEP 13:32
PROVIDERS: PCP Psychiatry & Neurology Neurology; Visit Provider Psychiatry & Neurology Neurology
DX: G47.19 Other hypersomnia (principal)

== ENCOUNTER 2025-03-10 19:57 | Outpatient (OUT) | payer OTHER, SELFPAY ==
--- OUTSIDE RECORDS SUMMARY | 2025-03-10 20:01 | XMS_ITS | Clinical Summary ---
Author Organization [facility] Address [address] [place] [address] Care Team Providers Care Enamel Buffer Name Role Phone Mary Alexis CN Unavailable [phone] Kassie Pereira NP Unavailable [phone] Allergies Active AllergyReactionsCriticalityNoted TrfwVvscpoavUmkhqyiecljVrjjKoq71/22/2017 Medications MedicationSigDispense QuantityRefillsLast FilledStart DateEnd DateStatus escitalopram (Lexapro) 10 MG tablet Take 10 mg by mouth in the morning.5Active omeprazole (PriLOSEC) [address] capsule Take 20 mg by mouth in the morning.5Active Active Problems ProblemNoted DateDiagnosed DatePTSD (post-traumatic stress disorder)10/24/2023 Encounters DateTypeDepartmentCare GutzFmyzvwpfgez36/30/2025[facility]phone [facility] [address] [place] [address] Mary Alexis CNM 01/14/2025 2:00 PM EDTAncillary Procedure [facility] [address] [facility] [address] [place] [address] Abnormal uterine xinyxlqm24/11/7363Bzjsam18/11/2025Results [facility] [address] [place] [address] Uyen You MA THINPREP IMAGING PAP AND HPV DNA REFLEX HPV 16,18, US Pelvis w/ TV01/05/2025 2:00 PM EDTOffice Visit [facility] [address] [place] [address] Mary Alexis CNM Normal gynecologic examination; Screening for cervical cancer; Abnormal uterine bleedingfrom Last 3 Months Family History Medical HistoryRelationNameCommentsBipolar disorderBrotherSchizophreniaBrother DepressionFatherTuberculosisFatherdisabledFatherDiabetesMaternal Grandfather Thyroid cancerMaternal GrandmotherDepressionMotherLupusMotherprescription pain pill abuseMotherbeen to rehabColon cancerPaternal GrandfatherRelationNameStatus CommentsBrotherpatient has 4 brothersDaughterAliveFatherAliveMaternal GrandfatherAliveMaternal GrandmotherAliveMotherAlivePaternal GrandfatherAlive Paternal GrandmotherAliveSon(2)Alive Social History Tobacco UseTypesPacks/DayYears UsedDateSmoking Tobacco: NeverSmokeless Tobacco: NeverAlcohol UseStandard Drinks/WeekCommentsNever0 (1 standard drink = 0.6 oz pure alcohol)caffeine: 2-3 cups/dayPHQ-2AnswerDate RecordedPatient Health Questionnaire-2 Tihwv203Edinburgh Depression ScaleAnswerDate RecordedEdinburgh Depression Scale Cxvfo3908/18/2024The thought of harming myself has occurred to me.Never4CommentsNoSex and Gender InformationValueDate RecordedSex Assigned at BirthNot on fileLegal Sex Qwweot6107/18/2022 7:38 PM EDTGender IdentityNot on fileSexual OrientationNot on file Last Filed Vital Signs Vital SignReadingTime TakenCommentsBlood Vivbjiwm151/80001/05/2025 2:05 PM EDT Pulse--Temperature--Respiratory Rate--Oxygen Saturation--Inhaled Oxygen Concentration--Lgqktw228 kg (271 lb)01/05/2025 2:05 PM HRAFeaksw508.6 cm (5' 6 ) 04/11/2023 2:11 PM ESTBody Mass Index43.7404/11/2023 2:11 PM EST Plan of Treatment DateTypeDepartmentCare Team (Latest Contact Info)Abnpyoagkeg09/03/2026 2:00 PM EDTOffice Visit [facility] [address] [place] [address] Mary Alexis, CNM [address] [place], [place] [phone] Procedures Procedure NamePriorityDate/TimeAssociated DiagnosisCommentsUS PELVIC COMPLETE W/ WTLsbfixj34/11/2025 2:21 PM EDT Abnormal uterine bleeding THINPREP IMAGING PAP AND HPV DNA REFLEX HPV 16,60Judixuu46/02/2025 4:29 PM EDT Screening for cervical cancer from Last 3 Months Results * US Pelvis w/ TV (01/14/2025 2:21 PM EDT)Anatomical RegionLateralityModality PelvisUltrasoundSpecimen (Source)Anatomical Location / LateralityCollection Method / VolumeCollection TimeReceived Time01/14/2025 3:15 PM EDT Impressions 01/14/2025 3:23 PM EDT Normal uterus/endometrium TRANSCRIBED BY: ? ELECTRONICALLY SIGNED BY: Alvaro Jett MD Narrative 01/14/2025 3:23 PM EDT FINDINGS: Uterus ? 10.6 x 5.0 x 5.0 cm Endometrium ? 4 mm Right ovary ?2.2 x 2.4 x 3.5 cm Left ovary ?Not seen The uterus is normal in size and orientation. ??No worrisome mass lesions are seen. ??Endometrium appears unremarkable. ?? Right ovary is normal for this age. ??No pelvic fluid. ??Left ovary not identified, no left adnexalmass. Procedure Note Alvaro Jett MD - 01/14/2025 [...] BY: ELECTRONICALLY SIGNED BY: Alvaro Jett MD Authorizing ProviderResult TypeResult StatusValerie Leon Alexis [facility] US PROCEDURES Final Result * THINPREP IMAGING PAP AND HPV DNA REFLEX HPV 16,18 (01/05/2025 4:29 PM EDT) ComponentValueRef RangeTest MethodAnalysis TimePerformed AtPathologist SignatureCLINICAL INFORMATIONQUESTComment:None givenLMPQUESTComment:NONE GIVEN PREV. PAPQUESTComment:NONE GIVENPREV. BXQUESTComment:NONE GIVENSOURCEQUEST Comment:None givenSTATEMENT OF ADEQUACYQUESTComment: Satisfactory for evaluation. Endocervical/transformation zone component present. INTERPRETATION/RESULTQUESTComment: Cytology Results: Negative for intraepithelial lesion or malignancy. COMMENTQUESTComment: This Pap test has been evaluated with the ThinPrep(R) Imaging System. CYTOTECHNOLOGISTQUESTComment: PCJ, SCT(ASCP) CT screening location: Status Overload [place] [address]. CLIA: [id number] REVIEW CYTOTECHNOLOGISTQUESTComment: MRS, CT(ASCP) CT screening location: Status Overload [place] [address]. CLIA: [id number] (ALWAYS MESSAGE)QUESTComment: EXPLANATORY NOTE: The Pap is a screening test for cervical cancer. It is not a diagnostic test and is subject to false negative and false positive results. It is most reliable when a satisfactory sample, regularly obtained, is submitted with relevant clinical findings and history, and when the Pap result is evaluated along with historic and current clinical information. HPV DNA, HIGH RISK, CERVICALNot DetectedNOT DETECTEDQUESTComment: Not Detected High Risk HPV types (16,18,31,33,35,39,45,51,52, 56,58,59,66,68) were not detected. Other HPV types which cause anogenital lesions may be present. The significance of the other types of HPV in malignant processes has not been established. Methodology: Real Time PCR Specimen (Source)Anatomical Location / LateralityCollection Method / Volume Collection TimeReceived TimeSwabCervical swab / Ezgeprl9601/05/2025 4:29 PM EDT 01/06/2025 2:37 AM EDT Narrative Resulting Agency Comment Performing Organization Information ?Site ID: AMD ?Name: [facility] ?Address: [address] [place] [address] [address] [place], [place] ?Director: Red Jackson M.D.,PhD ?Site ID: [id number] ?Name: [facility] ?Address: [address] [place] [address], [address] [place] [id number] ?Director: Tree Betancourt MD Authorizing ProviderResult TypeResult StatusValeluis fernando lAexis CNMLAB CYTOLOGY ORDERABLESFinal ResultPerforming OrganizationAddressCity/State/ZIP CodePhone Number [facility] from Last 3 Months Insurance Care Teams Team MemberRelationshipSpecialtyStart DateEnd Date Mary Alexis CNM [address] [place] [address] Obstetrics and Gynecology10/25/22 Kassie Pereira NP [address] [place] [address] Referring PhysicianFamily Medicine12/02/23
--- OUTSIDE RECORDS SUMMARY | 2025-03-10 20:01 | XMS_ITS | Clinical Summary ---
Author Organization [email or web address] tem Address [id number] [place] [address] Care Team Providers Care Fountain Brush Assembler Name Role Phone NellieKassie perez CHIARA-AGRICULTURAL PLOW OPERATOR Primary Care Provide r Allergies Active AllergyReactionsCriticalityNoted HmmhCycywnecCgwagaldykcCiylEdo21/03/2018 Medications MedicationSigDispense QuantityRefillsLast FilledStart DateEnd DateStatus omeprazole (PriLOSEC) 20 mg capsule Take 1 capsule (20 mg total) by mouth in the morning. 90 capsule 5Active escitalopram (LEXAPRO) 10 mg tablet Take 1 tablet (10 mg total) by mouth in the morning. 90 tablet 5Active tiZANidine (ZANAFLEX) 4 mg tablet Take 1 tablet (4 mg total) by mouth nightly.5Active albuterol (PROVENTIL HFA;VENTOLIN HFA) 90 mcg/actuation inhaler Indications:COVID-19Inhale 2 puffs every 6 (six) hours as needed for wheezing. 18 g /12/2024Discontinued dicyclomine (BENTYL) 20 mg tablet Take 1 tablet (20 mg total) by mouth in the morning and 1 tablet (20 mg total) before bedtime. 30 tablet Discontinued methocarbamoL (ROBAXIN) 500 mg tablet Take 1 tablet (500 mg total) by mouth 2 (two) times a day as needed for muscle spasms (back pain). 20 tablet 51Discontinued Active Problems ProblemNoted DateDiagnosed DateAcute appendicitis, unspecified acute appendicitis type09/11/2023SS-B antibody ncltiydx70/16/2020 Overview (06/21/2019): + 06/18/2019: JOSIE panel ordered due to arrhythmia noted on EFM. Patient underwent PLTCS d/t arrhythmia with concern of third degree degree heart block. SSB +, all others negative Ncogkqvfurtyzbf21/13/2020Tachycardia with heart rate 121-140 beats per minute 06/17/2019MigraineFibromyalgia, primary Resolved Problems ProblemNoted DateDiagnosed DateResolved DatePreterm premature rupture of membranes (PPROM) delivered, current pykwgbygqcfzjiu01/06/202309/07/2024 with 15 completed weeks / Encounters DateTypeDepartmentCare RikpHthmcyfpsui26/08/2025Orders Only [facility] [address] [place] [phone] Kassie Pereira, CHIARA-AGRICULTURAL PLOW OPERATOR 02/10/2025Telephone [facility] [address] [place] [phone] Ina Phelps LPN 01/21/2025 1:00 PM EDTTelemedicine [facility] Di[facility]ians [address] [place] [phone] July Ruiz LD Pre-bariatric surgery nutrition evaluation (Primary Dx); Morbid obesity ([facility])01/20/2025 2:30 PM EDTOffice Visit [facility]-B[facility] [address] [place] [phone] Fanta Asencio MD Morbid obesity ([facility]) (Primary Dx); BMI 40.0-44.9, adult ([facility]); Fatigue, unspecified type; Pre-bariatric surgery nutrition evaluation; Preop tslobnm6901/20/20255305Kkbpzi10/10/2025Telephone [facility] [address] [place] [address] Kassie Pereira APRN-ELIAS 01/12/20254704Dtiucg60/08/2025 6:02 AM EDT - 01/11/2025 8:04 [facility] [address] [place] [address] Steve Medellin MD Strain of lumbar region, initial encounter (Primary Dx) Discharge Disposition: Home01/11/20259558Grzvqi49/03/2025 1:30 PM EDTOffice Visit [facility] [address] [place] [address] Kassie Pereira APRN-ELIAS Anxiety (Primary Dx); BMI 40.0-44.9, adult ([facility])01/06/2025Telephone [facility] [address] [place] [address] Sarahi Carlson, [facility] 01/06/20254298Pelpzl87/02/2025Orders Only [facility] [address] [place] [address] Kassie Pereira APRN-ELIAS 12/29/2024Telephone [facility] [address] [place] [address] Dior Santos, [facility] 12/28/2024Telephone [facility] [address] [place] [phone] Dior Santos, [facility] 12/25/2024Telephone [facility] [address] [place] [phone] Dior Santos, [facility] 12/23/2024Refill [facility] [address] [place] [phone] Kassie Pereira APRN-CNP from Last 3 Months Immunizations ImmunizationAdministration DatesNext DueDTP / HiB06/23/1996DTaP, Unspecified 07/26/2000,03/25/1998,02/23/1997,09/08/1996Hep B, Arrqhhcpjx70/20/2024Hep B, Adolescent or Rylzsysmq04/06/1997,06/23/1996,1995HiB03/25/1998,02/23/1997, 09/08/1996IPV07/26/2000MMR07/26/2000,02/23/1997OPV1,09/08/1996, 06/23/1996Tdap01/26/2023,04/27/2019,11/15/2016,01/06/20154987Gqbyqwgzg07/22/1999 Family History Medical HistoryRelationNameCommentsChiari malformationFatherDiabetesMotherHeart diseaseMotherLupusMotherRelationNameStatusCommentsFatherAliveMotherAlive Social History Tobacco UseTypesPacks/DayYears UsedDateSmoking Tobacco: Former Vaping/E-cigarettesQuit: mokeless Tobacco: Never Tobacco Cessation:Counseling Given: Not Answered Alcohol UseStandard Drinks/WeekCommentsNot Currently0 (1 standard drink = 0.6 oz pure alcohol)[facility] UtilitiesAnswerDate RecordedIn the past 12 months has the electric, gas, oil, or water [employer] threatened to shut off services in your home?No09/11/2023Overall Financial Resource Strain (CARDIA)AnswerDate Recorded How hard is it for you to pay for the very basics like food, housing, medical care, and heating?Not hard at all12/27/2022HQ-2AnswerDate RecordedTotal Score0 01/06/2025PRAPARE - TransportationAnswerDate RecordedIn the past 12 months, has lack of transportation kept you from medical appointments or from getting medications?No09/11/2023In the past 12 months, has lack of transportation kept you from meetings, work, or from getting things needed for daily living?No 09/11/2023Edinburgh Depression ScaleAnswerDate RecordedEdinburgh Depression Scale Kemin72406/03/2022The thought of harming myself has occurred to me.Never04/03/2023Housing InstabilityAnswerDate RecordedAre you worried or concerned that in the next two months you may not have stable housing that you own, rent or stay in as a part of a household?No4Childcare AnswerDate GlkzivzmIbznqqogyYwgdkiu40/12/2019EmploymentAnswerDate Recorded BhnkwuyypiGyxffpr90/12/2019Hunger ScreeningAnswerDate RecordedWithin the past 12 months we worried whether our food would run out before we got money to buy more.Never True01/11/2025Within the past 12 months the food we bought just didn't last and we didn't have money to get more.Never True01/11/2025Purpose - LifeAnswerDate RecordedPurpose and direction in ofuzPrzyilm77/11/2021 CommentsNoSex and Gender InformationValueDate RecordedSex Assigned at BirthNot on fileLegal WsmDrzwbn36/06/2015 11:52 AM EDTGender CgoigkyuXnnvfo32/08/2024 6:37 PM EDTSexual YzaxczblbjfIedlouvc26/08/2024 6:37 PM EDT Last Filed Vital Signs Vital SignReadingTime TakenCommentsBlood Kqwikcyj716/8701/20/2025 2:00 PM EDT Oqhem750801/20/2025 2:00 PM JRGQycflnrxluo21 ??C (98.6 ??F)01/11/2025 7:23 AM EDT Respiratory Fumw273001/11/2025 7:23 AM EDTOxygen Igmbwplkjc650%01/11/2025 7:23 AM EDTInhaled Oxygen Concentration--Rbkfbt761.7 kg (266 lb)01/21/2025 1:05 PM EDT Zbtooa632.1 cm (5' 5 )01/21/2025 1:05 PM EDTBody Mass Index44.2609 1:05 PM EDT Plan of Treatment DateTypeDepartmentCare Team (Latest Contact Info)Dbircynzoal25/30/2026 1:30 PM EDTOffice Visit [facility] [address] [place] [phone] Kassie Pereira, REIMBURSEMENT AUDITOR-AGRICULTURAL PLOW OPERATOR [address] [place] [address] Health MaintenanceDue DateLast DoneCommentsPap Smear11/26/2016Influenza Vaccine 01/04/2025dult BMI Follow Up Plan/07/2024Depression Screening /07/2024, 04/03/2023Tobacco Qebvyhdbd50/dult BMI Zwcgafoqt95DTaP,Tdap and Td Vaccines (10 - Td or Tdap) /, 04/27/2019, 11/15/2016, Additional history exists Medical Devices Not on file Procedures Procedure NamePriorityDate/TimeAssociated DiagnosisCommentsAMB REFERRAL TO NUTRITION EVQERTZLVqbmeod89/18/2025 1:54 PM EDT Morbid obesity (CMS-HCC) Pre-bariatric surgery nutrition evaluation HEMOGLOBIN P8XCarqlgg32/17/2025 3:08 PM EDT Morbid obesity (CMS-HCC) Fatigue, unspecified type Preop testing VITAMIN D 25 KFYBWXPGqoxtig29/17/2025 3:08 PM EDT Morbid obesity (CMS-HCC) Fatigue, unspecified type Preop testing VITAMIN Z69Wjmhyoy60/17/2025 3:08 PM EDT Morbid obesity (CMS-HCC) Fatigue, unspecified type Preop testing TQSUjbqrez64/17/2025 3:08 PM EDT Morbid obesity (CMS-HCC) Fatigue, unspecified type Preop testing PARATHYROID HORMOME, XCYONBNaovwur57/17/2025 3:08 PM EDT Morbid obesity (CMS-HCC) Fatigue, unspecified type Preop testing LIVER OMFSIIcijysb16/17/2025 3:08 PM EDT Morbid obesity (CMS-HCC) Fatigue, unspecified type Preop testing YQDDKcjmrib73/17/2025 3:08 PM EDT Morbid obesity (CMS-HCC) Fatigue, unspecified type Preop testing CBC WITH AUTO XPRYIVWGQYQASeiyvmg99/17/2025 3:08 PM EDT Morbid obesity (CMS-HCC) Fatigue, unspecified type Preop testing from Last 3 Months Results * Ambulatory referral to Nutrition Services (01/21/2025 1:54 PM EDT) Narrative Authorizing ProviderResult TypeResult StatusFanta Asencio MDOUTPATIENT REFERRAL ORDERABLESFinal ResultPerforming OrganizationAddressCity/State/ZIP CodePhone Number MANUALLY TRANSCRIBED RESULTS * Parathyroid Hormone, intact (01/20/2025 3:08 PM EDT)ComponentValueRef Range Test MethodAnalysis TimePerformed AtPathologist SignaturePTH SORXDP1068 - 88 pg/mL01/20/2025 5:53 PM [facility] LABORATORYSpecimen (Source)Anatomical Location / LateralityCollection Method / VolumeCollection TimeReceived TimeBloodVenous blood / UnknownVenipuncture / Vbehtvz4401/20/2025 3:08 PM EDT01/20/2025 3:08 PM EDT Narrative Authorizing ProviderResult TypeResult Jason Asencio MDLAB BLOOD ORDERABLES Final ResultPerforming OrganizationAddressty/State/ZIP CodePhone Number [facility] [address] [place] [phone], * (ABNORMAL) CBC auto differential (01/20/2025 3:08 PM EDT)ComponentValueRef RangeTest MethodAnalysis TimePerformed AtPathologist SignatureWBC8.24 - 11 x10E9/L01/20/2025 5:39 PM [facility] LABORATORYRBC Count5.21 (H)3.8 - 5.2 X10E12/L01/20/2025 5:39 PM [facility] Zwwudxyuqk01.211.7 - 15.5 g/dL01/20/2025 5:39 PM [facility] HFYWGWRUWRMbddctjkfh60.635 - 47 %01/20/2025 5:39 PM [facility] AXYDQNDYAEHLK92(L)80 - 100 fL01/20/2025 5:39 PM [facility] UYHXSUMTLYIZI37.3(L)27 - 34 pg01/20/2025 5:39 PM [facility] EQQYIASGPRSXQS56.532 - 36 g/dL01/20/2025 5:39 PM [facility] PNRLJIBBECUTZ24.311.5 - 15 %01/20/2025 5:39 PM [facility] LABORATORYPlatelet Alvor977509 - 450 X10E9/L01/20/2025 5:39 PM [facility] LABORATORYMPV9.37 - 12 fL01/20/2025 5:39 PM [facility] LABORATORYNeutrophils %65.8%01/20/2025 5:39 PM [facility] LABORATORYLymphocytes %27.8%01/20/2025 5:39 PM [facility] LABORATORYMonocytes %4.1%01/20/2025 5:39 PM [facility] LABORATORYEosinophils %1.2%01/20/2025 5:39 PM [facility] LABORATORYBasophils %1.1%01/20/2025 5:39 PM [facility] LABORATORYNeutrophils Absolute (A)5.41.5 - 6.6 10*3/uL 01/20/2025 5:39 PM [facility] LABORATORYLymphocytes Absolute 2.31.0 - 3.5 10*3/uL01/20/2025 5:39 PM [facility] Monocytes Absolute0.30.0 - 0.9 10*3/uL01/20/2025 5:39 PM [facility] LABORATORYEosinophils Absolute0.10.0 - 0.4 10*3/uL01/20/2025 5:39 PM [facility] LABORATORYBasophils Absolute0.10.0 - 0.2 10*3/uL 01/20/2025 5:39 PM [facility] LABORATORYDifferential Type AUTOMATED LQPGRBGNUXYZ53/17/2025 5:39 PM [facility] LABORATORYSpecimen (Source)Anatomical Location / LateralityCollection Method / VolumeCollection TimeReceived TimeBloodVenous blood / UnknownVenipuncture / Zskthti6601/20/2025 3:08 PM EDT01/20/2025 3:08 PM EDT Narrative Authorizing ProviderResult TypeResult StatusSarenny Asencio MDLAB BLOOD ORDERABLES Final ResultPerforming OrganizationAddressCity/State/ZIP CodePhone Number [facility] [address] [place] [address], * (ABNORMAL) Vitamin D 25 hydroxy (01/20/2025 3:08 PM EDT)ComponentValueRef RangeTest MethodAnalysis TimePerformed AtPathologist SignatureVITAMIN D 25 HYD TOT16.4(L)30.0 - 100.0 ng/mL01/20/2025 6:00 PM [facility] LABORATORYSpecimen (Source)Anatomical Location / LateralityCollection Method / VolumeCollection TimeReceived TimeBloodVenous blood / UnknownVenipuncture / Hojacqt7501/20/2025 3:08 PM EDT01/20/2025 3:[address] [facility] - 01/20/2025 6:00 PM EDT Vitamin D status 25 [place] Vitamin D Deficiency <20 ng/mL Insufficiency ? 20-29 ng/mL Sufficiency ? 30-100 ng/mL Toxicity >100 ng/mL NOTE: A pediatric reference range has not been established by the content architect of this kit. The [place] [employer] recommends a Vitamin D level of = or >20ng/mL in infants and children. Authorizing ProviderResult TypeResult StatusFanta JACOBS BLOOD ORDERABLES Final ResultPerforming OrganizationAddressCity/State/ZIP CodePhone Number [address] [place] [address], * TSH (01/20/2025 3:08 PM EDT)ComponentValueRef RangeTest MethodAnalysis Time Performed AtPathologist SignatureTSH0.840.49 - 4.67 uIU/mL01/20/2025 5:48 PM [facility] LABORATORYSpecimen (Source)Anatomical Location / LateralityCollection Method / VolumeCollection TimeReceived TimeBloodVenous blood / UnknownVenipuncture / Tbgptjl8701/20/2025 3:08 PM EDT01/20/2025 3:08 PM EDT Narrative Authorizing ProviderResult TypeResult StatusFanta Asencio MDLAB BLOOD ORDERABLES Final ResultPerforming OrganizationAddressCity/State/ZIP CodePhone Number [address] [place] [address], * (ABNORMAL) Iron (01/20/2025 3:08 PM EDT)ComponentValueRef RangeTest Method Analysis TimePerformed AtPathologist DcfeugeifOXQF10(L)50 - 170 ug/dL 01/20/2025 5:40 PM [facility] LABORATORYSpecimen (Source) Anatomical Location / LateralityCollection Method / VolumeCollection Time Received TimeBloodVenous blood / UnknownVenipuncture / Iqnhbdr2801/20/2025 3:08 PM EDT01/20/2025 3:08 PM EDT Narrative Authorizing ProviderResult TypeResult StatusFanta JACOBS BLOOD ORDERABLES Final ResultPerforming OrganizationAddressty/State/ZIP CodePhone Number [address] [place] [address], * Hemoglobin A1c (01/20/2025 3:08 PM EDT)ComponentValueRef RangeTest Method Analysis TimePerformed AtPathologist SignatureHEMOGLOBIN A1C5.54.4 - 5.6 % 01/20/2025 6:47 PM [facility] LABORATORYComment: ?ADA Guidelines ?Result ?HgbA1c ? Normal : ? less than 5.7 % ? Prediabetes : ?5.7 % ??to 6.4 % Diabetes : > 6.4 % ?Use with caution in patients with abnormal hemoglobin variants as ??the half-life of red blood cells and in vivo glycation rates are ??affected. EST. AVERAGE WLMLMZN532oy/dL01/20/2025 6:47 PM [facility] LABORATORYSpecimen (Source)Anatomical Location / LateralityCollection Method / VolumeCollection TimeReceived TimeBloodVenous blood / UnknownVenipuncture / Slxndvb3401/20/2025 3:08 PM EDT01/20/2025 3:08 PM EDT Narrative Authorizing ProviderResult TypeResult StatusFanta Asencio MDLAB BLOOD ORDERABLES Final ResultPerforming OrganizationAddressCity/State/ZIP CodePhone Number [facility] [address] [place] [address], * Vitamin B12 (01/20/2025 3:08 PM EDT)ComponentValueRef RangeTest MethodAnalysis TimePerformed AtPathologist SignatureVITAMIN D58604779 - 914 pg/mL01/20/2025 5:57 PM [facility] LABORATORYSpecimen (Source)Anatomical Location / LateralityCollection Method / VolumeCollection TimeReceived Time BloodVenous blood / UnknownVenipuncture / Hgmsnhq2001/20/2025 3:08 PM EDT 01/20/2025 3:08 PM EDT Narrative Authorizing ProviderResult TypeResult StatusSarah Jackie JACOBS BLOOD ORDERABLES Final ResultPerforming OrganizationAddressCity/State/ZIP CodePhone Number [facility] [address] [place] [address], * Liver panel (01/20/2025 3:08 PM EDT)ComponentValueRef RangeTest MethodAnalysis TimePerformed AtPathologist SignatureTOTAL PROTEIN7.36.0 - 8.0 g/dL01/20/2025 5:40 PM [facility] LABORATORYALBUMIN4.53.2 - 5.3 g/dL 01/20/2025 5:40 PM [facility] LABORATORYBILIRUBIN,TOTAL0.30.3 - 1.2 mg/dL01/20/2025 5:40 PM [facility] LABORATORYALKALINE CKIAISPSBQR29544 - 130 U/L01/20/2025 5:40 PM [facility] WOAKBXEFPSXSI31<=41 U/L01/20/2025 5:40 PM [facility] FXNKPTXYOEQZC57<=31 U/L01/20/2025 5:40 PM [facility] LABORATORYBILIRUBIN,DIRECT<0.1<=0.4 mg/dL01/20/2025 5:40 PM [facility] LABORATORYSpecimen (Source)Anatomical Location / LateralityCollection Method / VolumeCollection TimeReceived TimeBloodVenous blood / Unknown Venipuncture / Vpyuysy8501/20/2025 3:08 PM EDT01/20/2025 3:08 PM EDT Narrative Authorizing ProviderResult TypeResult StatusSarenny JACOBS BLOOD ORDERABLES Final ResultPerforming OrganizationAddressCity/State/ZIP CodePhone Number [facility] [address] [place] [address], from Last 3 Months Insurance Advance Directives * Full Code (Latest Code Status on File) Date ActivatedDate InactivatedComments01/09/2023 6:04 AM03/08/2023 8:49 PM * Full Code Date ActivatedDate InactivatedComments12/27/2022 8:13 AM12/27/2022 11:18 AM * Full Code Date ActivatedDate InactivatedComments06/18/2019 2:59 AM06/21/2019 4:48 PM * Full Code Date ActivatedDate InactivatedComments06/18/2019 12:57 AM06/18/2019 2:59 AM * Full Code Date ActivatedDate InactivatedComments06/17/2019 6:38 PM2 11:54 PM Care Teams Team MemberRelationshipSpecialtyStart DateEnd Date Kassie Pereira APRN-ELIAS [address] [place] [address] PCP - GeneralFamily Medicine09/21/22
--- OUTSIDE RECORDS SUMMARY | 2025-03-10 20:02 | XMS_ITS | Patient Health Record ---
Author Organization [facility] in [place] Address [address] [place] [address] Care Team Providers Care Tool Room Attendant Name Role Phone Kassie Pereira CNP Primary Care Provider Khushi vailable Allergies Allergen (clinical drug ingredient) Drug/Non Drug Allergy documented on EMR Reaction Allergy Type Onset Date Status penicillin (uncoded)UnknownAllergyActive Reason For Referral No Information Medications Medication SIG (Take, Route, Frequency, Duration) Notes Start Date End Date Status Vitamin D (Ergocalciferol) 1.25 MG (5000 0 UT) TAKE 1 CAPSULE BY MOUTH ONCE WEEKLY; Duration: 30 ActiveAlbuterol 90 MCG/ACTas directed InhalationActiveErgocalciferol 47434 UNIT1 capsule Orally once a week x 8 weeks; Duration: 30 daysFollow with OTC vitamin D3 25mcg(1000 units) daily AFTER 8 wk therapy.07/04/2020ctiveCitalopram Hydrobromide 20 MG1 tablet Orally Once a day; Duration: 30 day(s)Active SUMAtriptan Succinate 50 MG1 tablet at least 2 hours between doses as needed Orally Twice a dayPRN migrainesActiveMeloxicam 15 MG1 tablet Orally Once a day with food; Duration: 90 daysas qnkixb9306/27/2020ctiveTopamax 50 MG1 tablet Orally Twice a dayActive Social History Tobacco Use: Social History Observation Description Date Details (start date - stop date) Never Smoker NA - NA Tobacco Use/Smoking Question Answer Notes Patient is a nonsmoker Section Notes: nonsmoker , 3 children occupation = 2020 in [employer] Problems Problem Type SNOMED Code ICD Code Onset Dates Problem Status W/U Status Risk Notes Problem Paresthesia (finding) (28405542) Paresthe mariusz (R20.2) ActiveconfirmedProblemUndifferentiated connective tissue disease (470260273) Undifferentiated connective tissue disease (M35.9)ActiveconfirmedProblem Fibromyalgia (011269078)Fibromyalgia (M79.7)ActiveconfirmedProblemHeadache (88348224)Headache syndrome (G44.89)ActiveconfirmedProblemSicca syndrome (82222009)Sicca syndrome (M35.00)Activeconfirmed Plan Of Treatment No Information Insurance Providers Payer Name Payer Address Payer Phone Subscriber Number Group Number Insured Name Patient Relationship to Insured Coverage Start Date Coverage End Date MMO [employer] [address] [place] [address] [id number] Onur Caceres Spouse - patient is the spouse of the insured 8 Medical (General) History Medical History History ICD Code Sjogrens hx of migraine headachesSurgical History Surgery Date(Month/Year) c - section x 2019 tonsilectomy
== END 2025-03-10 19:58 | disposition home or self-care (01) ==
PROVIDERS: PCP Psychiatry & Neurology Neurology; Visit Provider Psychiatry & Neurology Neurology
DX: G47.33 Obstructive sleep apnea (adult) (pediatric) (principal); G47.11 Idiopathic hypersomnia with long sleep time; F51.01 Primary insomnia
CPT/HCPCS: 95810

== ENCOUNTER 2025-04-07 20:55 | Outpatient (OUT) | payer OTHER, SELFPAY ==
--- OUTSIDE RECORDS SUMMARY | 2025-04-07 20:58 | XMS_ITS | Patient Health Record ---
Author Organization [facility] [place] Address [address] [place] [address] Care Team Providers Care Showroom Sales Consultant Name Role Phone Kassie Pereira CNP Primary [...] Duration: 30 ActiveAlbuterol 90 MCG/ACTas directed InhalationActiveErgocalciferol 01553 UNIT1 capsule Orally once a week x [...] a day with food; Duration: 90 daysas xeekmr1706/27/2020ctiveTopamax 50 MG1 tablet Orally Twice a dayActive Social History Tobacco Use: Social History Observation Description Date Details (start date - stop date) Never Smoker NA - NA Tobacco Use/Smoking Question Answer Notes Patient is a nonsmoker Section Notes: 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 , 3 children 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 Problems Problem Type SNOMED Code ICD Code Onset Dates Problem Status W/U Status Risk Notes Problem Paresthesia (finding) (95586486) Paresthe mariusz (R20.2) ActiveconfirmedProblemUndifferentiated connective tissue disease (802714522) Undifferentiated connective tissue disease (M35.9)ActiveconfirmedProblem Fibromyalgia (810841105)Fibromyalgia (M79.7)ActiveconfirmedProblemHeadache (33121723)Headache syndrome (G44.89)ActiveconfirmedProblemSicca syndrome (15433358)Sicca syndrome (M35.00)Activeconfirmed Plan Of Treatment No Information Insurance Providers Payer Name Payer Address Payer Phone Subscriber Number Group Number Insured Name Patient Relationship to Insured Coverage Start Date Coverage End Date MMO [employer] [address] [place] [address] [id number] Onur Caceres Spouse - patient is the spouse of the insured 8 Medical (General) History Medical History History ICD Code Sjogrens hx of migraine headachesSurgical History Surgery Date(Month/Year) c - section x 2019 tonsilectomy
--- OUTSIDE RECORDS SUMMARY | 2025-04-07 20:58 | XMS_ITS | Clinical Summary ---
Author Organization [facility] tem Address [facility] [place], [id number] [address] [place] [address] Care Team Providers Care Cephalometric Tracer Name Role Phone Kassie Pereira CHIARA-ANIMAL NUTRITION CONSULTANT Primary Care Provide r Allergies Active AllergyReactionsCriticalityNoted OpxbRrxsiyhpJqmmiwixeacOzbuLhc89/03/2018 Medications MedicationSigDispense QuantityRefillsLast FilledStart DateEnd DateStatus omeprazole (PriLOSEC) 20 mg capsule Take 1 capsule (20 mg total) by mouth in the morning. 90 capsule 5Active escitalopram (LEXAPRO) 10 mg tablet Take 1 tablet (10 mg total) by mouth in the morning. 90 tablet 5Active tiZANidine (ZANAFLEX) 4 mg tablet Take 1 tablet (4 mg total) by mouth nightly.5Active Active Problems ProblemNoted DateDiagnosed DateAcute appendicitis, unspecified acute appendicitis type09/11/2023SS-B antibody uusmpiac08/16/2020 Overview (06/21/2019): + 06/18/2019: JOSIE panel ordered due to arrhythmia noted on EFM. Patient underwent PLTCS d/t arrhythmia with concern of third degree degree heart block. SSB +, all others negative Pneuhfzgukmnxww05/13/2020Tachycardia with heart rate 121-140 beats per minute 06/17/2019MigraineFibromyalgia, primary Resolved Problems ProblemNoted DateDiagnosed DateResolved DatePreterm premature rupture of membranes (PPROM) delivered, current oxjbruxqevvvgxn91/06/202309/07/2024 with 15 completed weeks / Encounters DateTypeDepartmentCare YblyAxvcoypcqqp62/08/2025Orders Only [facility] [address] [place] [address] Kassie Pereira, CERTIFIED MEDICAL BILLER-ANIMAL NUTRITION CONSULTANT 02/10/2025Telephone [facility] [place] [address] Ina Phelps LPN 01/21/2025 1:00 PM EDTTelemedicine [facility] [address] [place] [phone] July Ruiz LD Pre-bariatric surgery nutrition evaluation (Primary Dx); Morbid obesity ([facility])01/20/2025 2:30 PM EDTOffice Visit [facility] [address] [facility] [address] [place] [phone] Fanta Asencio MD Morbid obesity ([facility]) (Primary Dx); BMI 40.0-44.9, adult ([facility]); Fatigue, unspecified type; Pre-bariatric surgery nutrition evaluation; Preop lqqrpug7401/20/20258270Fcoguv50/10/2025Telephone [facility] [address] [place] [address] Kassie Pereira, CERTIFIED MEDICAL BILLER-ANIMAL NUTRITION CONSULTANT 01/12/20250554Svlenz44/08/2025 6:02 AM EDT - 01/11/2025 8:04 AM EDTEmergency [facility] [address] [place] [address] Steve Medellin MD Strain of lumbar region, initial encounter (Primary Dx) Discharge Disposition: Home01/11/20255989Iemvxq22/03/2025 1:30 PM EDTOffice Visit [facility] [address] [place] [phone] Kassie Pereira APRN-CNP Anxiety (Primary Dx); BMI 40.0-44.9, adult ([facility])01/06/2025Telephone [facility] [address] [place] [phone] Sarahi Burden CMA 01/06/2025Travelfrom Last 3 Months Immunizations ImmunizationAdministration DatesNext DueDTP / HiB06/23/1996DTaP, Unspecified 07/26/2000,03/25/1998,02/23/1997,09/08/1996Hep B, Bvrczujuel80/20/2024Hep B, Adolescent or Aobfofscw30/06/1997,06/23/1996,1995HiB03/25/1998,02/23/1997, 09/08/1996IPV07/26/2000MMR07/26/2000,02/23/1997OPV1,09/08/1996, 06/23/1996Tdap01/26/2023,04/27/2019,11/15/2016,01/06/20151385Nubviodqe39/22/1999 Family History Medical HistoryRelationNameCommentsChiari malformationFatherDiabetesMotherHeart diseaseMotherLupusMotherRelationNameStatusCommentsFatherAliveMotherAlive Social History Tobacco UseTypesPacks/DayYears UsedDateSmoking Tobacco: Former Vaping/E-cigarettesQuit: mokeless Tobacco: Never Tobacco Cessation:Counseling Given: Not Answered Alcohol UseStandard Drinks/WeekCommentsNot Currently0 (1 standard drink = 0.6 oz pure alcohol)[facility] UtilitiesAnswerDate RecordedIn the past 12 months has the [employer], gas, oil, or water [employer] threatened to shut off services in your [...] living?No 09/11/2023Edinburgh Depression ScaleAnswerDate RecordedEdinburgh Depression Scale Xjuet70706/03/2022The thought of harming myself has occurred to me.Never04/03/2023Housing InstabilityAnswerDate RecordedAre you worried or concerned that in the next two months you may not have stable housing that you own, rent or stay in as a part of a household?No09/11/2023hildcare AnswerDate GiuqtkjdOpjatadswFfeeuan80/12/2019EmploymentAnswerDate Recorded IknkufhcbaTtwectz71/12/2019Hunger ScreeningAnswerDate RecordedWithin the past 12 months we worried whether our food would run out before we got money to buy more.Never True01/11/2025Within the past 12 months the food we bought just didn't last and we didn't have money to get more.Never True01/11/2025Purpose - LifeAnswerDate RecordedPurpose and direction in lewgUipqgwq29/11/2021 CommentsNoSex and Gender InformationValueDate RecordedSex Assigned at BirthNot on fileLegal FgqZjwmro33/06/2015 11:52 AM EDTGender PqthbmewIogtzc13/08/2024 6:37 PM EDTSexual ItugpwsyskzKjrtuknm24/08/2024 6:37 PM EDT Last Filed Vital Signs Vital SignReadingTime TakenCommentsBlood Rkhrqnmn290/8701/20/2025 2:00 PM EDT Dqxaf440501/20/2025 2:00 PM XKKFzyvxfwmmxc72 ??C (98.6 ??F)01/11/2025 7:23 AM EDT Respiratory Liop374101/11/2025 7:23 AM EDTOxygen Mbhdpyyloz752%01/11/2025 7:23 AM EDTInhaled Oxygen Concentration--Jquhhd655.7 kg (266 lb)01/21/2025 1:05 PM EDT Uweuxs017.1 cm (5' 5 )01/21/2025 1:05 PM EDTBody Mass Index44.26001/21/2025 1:05 PM EDT Plan of Treatment DateTypeDepartmentCare Team (Latest Contact Info)Smjeaqteand61/30/2026 1:30 PM EDTOffice Visit [facility] [address] [place] [address] Kassie Pereira, CERTIFIED MEDICAL BILLER-ANIMAL NUTRITION CONSULTANT [address] [place], [place] [phone] Health MaintenanceDue DateLast DoneCommentsPap Smear11/26/2016Influenza Vaccine 01/04/2025dult BMI Follow Up Plan/07/2024Depression Screening /07/2024, 04/03/2023Tobacco Kkcjnbcfx92/dult BMI Mvldpkucr65DTaP,Tdap and Td Vaccines (10 - Td or Tdap) /, 04/27/2019, 11/15/2016, Additional history exists Medical Devices Not on file Procedures Procedure NamePriorityDate/TimeAssociated DiagnosisCommentsAMB REFERRAL TO NUTRITION HNBZLEFENquqktv27/18/2025 1:54 PM EDT Morbid obesity ([facility]) Pre-bariatric surgery nutrition evaluation HEMOGLOBIN P7RJvlvspv33/17/2025 3:08 PM EDT Morbid obesity ([facility]) Fatigue, unspecified type Preop testing VITAMIN D 25 JVQOUFLPzoxoft74/17/2025 3:08 PM EDT Morbid obesity ([facility]) Fatigue, unspecified type Preop testing VITAMIN S11Olsnidx79/17/2025 3:08 PM EDT Morbid obesity ([facility]) Fatigue, unspecified type Preop testing ZBPLvttggs77/17/2025 3:08 PM EDT Morbid obesity ([facility]-HCC) Fatigue, unspecified type Preop testing PARATHYROID HORMOME, ZTZBWEZsopvon99/17/2025 3:08 PM EDT Morbid obesity (CMS-HCC) Fatigue, unspecified type Preop testing LIVER AJHYAVtfsotk28/17/2025 3:08 PM EDT Morbid obesity (CMS-HCC) Fatigue, unspecified type Preop testing LVIBYpyymvw89/17/2025 3:08 PM EDT Morbid obesity (CMS-HCC) Fatigue, unspecified type Preop testing CBC WITH AUTO TMSGFEPRZUHHBxeibjz94/17/2025 3:08 PM EDT Morbid obesity ([facility]) Fatigue, unspecified type Preop testing from Last 3 Months Results * Ambulatory referral to Nutrition Services (01/21/2025 1:54 PM EDT) Narrative Authorizing ProviderResult TypeResult StatusFanta Asencio MDOUTPATIENT REFERRAL ORDERABLESFinal ResultPerforming OrganizationAddressCity/State/ZIP CodePhone Number MANUALLY TRANSCRIBED RESULTS * Parathyroid Hormone, intact (01/20/2025 3:08 PM EDT)ComponentValueRef Range Test MethodAnalysis TimePerformed AtPathologist SignaturePT ZOSFSR6864 - 88 pg/mL01/20/2025 5:53 PM [facility] LABORATORYSpecimen (Source)Anatomical Location / LateralityCollection Method / VolumeCollection TimeReceived TimeBloodVenous blood / UnknownVenipuncture / Gbkfnyr3501/20/2025 3:08 PM EDT01/20/2025 3:08 PM EDT Narrative Authorizing ProviderResult TypeResult StatusFanta Asencio MDLAB BLOOD ORDERABLES Final ResultPerforming OrganizationAddressCity/State/ZIP CodePhone Number [facility] [address] [place] [address], [place] [phone] * (ABNORMAL) CBC auto differential (01/20/2025 3:08 PM EDT)ComponentValueRef RangeTest MethodAnalysis TimePerformed AtPathologist SignatureWBC8.24 - 11 x10E9/L01/20/2025 5:39 PM [facility] LABORATORYRBC Count5.21 (H)3.8 - 5.2 X10E12/L01/20/2025 5:39 PM [facility] Uprzcwxhey97.211.7 - 15.5 g/dL01/20/2025 5:39 PM [facility] VJAOJVEXRSEvruocqqmf17.635 - 47 %01/20/2025 5:39 PM [facility] GDQEMYOLAYJYT29(L)80 - 100 fL01/20/2025 5:39 PM [facility] HFIHFKORJCFQZ23.3(L)27 - 34 pg01/20/2025 5:39 PM [facility] NRNWKEKOBZBBEX73.532 - 36 g/dL01/20/2025 5:39 PM [facility] MRJHTNZVJIOWX95.311.5 - 15 %01/20/2025 5:39 PM [facility] LABORATORYPlatelet Xizuz369432 - 450 X10E9/L01/20/2025 5:39 PM [facility] LABORATORYMPV9.37 - 12 fL01/20/2025 5:39 PM [facility] LABORATORYNeutrophils %65.8%01/20/2025 5:39 PM [facility] LABORATORYLymphocytes %27.8%01/20/2025 5:39 PM [facility] LABORATORYMonocytes %4.1%01/20/2025 5:39 PM [facility] LABORATORYEosinophils %1.2%01/20/2025 5:39 PM [facility] LABOR[facility]ORYBasophils %1.1%01/20/2025 5:39 PM [facility] LABORATORYNeutrophils Absolute (A)5.41.5 - 6.6 10*3/uL 01/20/2025 5:39 PM [facility] LABORATORYLymphocytes Absolute 2.31.0 - 3.5 10*3/uL01/20/2025 5:39 PM [facility] Monocytes Absolute0.30.0 - 0.9 10*3/uL01/20/2025 5:39 PM [facility] LABORATORYEosinophils Absolute0.10.0 - 0.4 10*3/uL01/20/2025 5:39 PM [facility] LABORATORYBasophils Absolute0.10.0 - 0.2 10*3/uL 01/20/2025 5:39 PM [facility] LABORATORYDifferential Type AUTOMATED HIPFAQOELJTM39/17/2025 5:39 PM [facility] LABORATORYSpecimen (Source)Anatomical Location / LateralityCollection Method / VolumeCollection TimeReceived TimeBloodVenous blood / UnknownVenipuncture / Lfzibws7501/20/2025 3:08 PM EDT01/20/2025 3:08 PM EDT Narrative Authorizing ProviderResult TypeResult StatusSarenny Asencio MDLAB BLOOD ORDERABLES Final ResultPerforming OrganizationAddressCity/State/ZIP CodePhone Number [facility] [address] [place] [address], * (ABNORMAL) Vitamin D 25 hydroxy (01/20/2025 3:08 PM EDT)ComponentValueRef RangeTest MethodAnalysis TimePerformed AtPathologist SignatureVITAMIN D 25 HYD TOT16.4(L)30.0 - 100.0 ng/mL01/20/2025 6:00 PM [facility] LABORATORYSpecimen (Source)Anatomical Location / LateralityCollection Method / VolumeCollection TimeReceived TimeBloodVenous blood / UnknownVenipuncture / Seclehf1701/20/2025 3:08 PM EDT01/20/2025 3:08 PM EDT Narrative [facility] - 01/20/2025 6:00 PM EDT Vitamin D status 25 [place] Vitamin D Deficiency <20 ng/mL Insufficiency ? 20-29 ng/mL Sufficiency ? 30-100 ng/mL Toxicity >100 ng/mL NOTE: A pediatric reference range has not been established by the adjunct psychology professor of this kit. The [place] [employer] recommends a Vitamin D level of = or >20ng/mL in infants and children. Authorizing ProviderResult TypeResult StatusFanta JACOBS BLOOD ORDERABLES Final ResultPerforming OrganizationAddressCity/State/ZIP CodePhone Number [facility] [address] [place] [address], * TSH (01/20/2025 3:08 PM EDT)ComponentValueRef RangeTest MethodAnalysis Time Performed AtPathologist SignatureTSH0.840.49 - 4.67 uIU/mL01/20/2025 5:48 PM [facility] LABORATORYSpecimen (Source)Anatomical Location / LateralityCollection Method / VolumeCollection TimeReceived TimeBloodVenous blood / UnknownVenipuncture / Vcrhtlf7301/20/2025 3:08 PM EDT01/20/2025 3:08 PM EDT Narrative Authorizing ProviderResult TypeResult StatusFanta JACOBS BLOOD ORDERABLES Final ResultPerforming OrganizationAddressCity/State/ZIP CodePhone Number [facility] [address] [place] [address], * (ABNORMAL) Iron (01/20/2025 3:08 PM EDT)ComponentValueRef RangeTest Method Analysis TimePerformed AtPathologist TienlaxroTSYG85(L)50 - 170 ug/dL 01/20/2025 5:40 PM [facility] LABORATORYSpecimen (Source) Anatomical Location / LateralityCollection Method / VolumeCollection Time Received TimeBloodVenous blood / UnknownVenipuncture / Ijpomzj3901/20/2025 3:08 PM EDT01/20/2025 3:08 PM EDT Narrative Authorizing ProviderResult TypeResult StatusFanta Asencio MDLAB BLOOD ORDERABLES Final ResultPerforming OrganizationAddressCity/State/ZIP CodePhone Number [facility] [address] [place] [address], * Hemoglobin A1c (01/20/2025 3:08 PM EDT)ComponentValueRef RangeTest Method Analysis TimePerformed AtPathologist SignatureHEMOGLOBIN A1C5.54.4 - 5.6 % 01/20/2025 6:47 PM [facility] LABORATORYComment: ?ADA Guidelines ?Result ?HgbA1c ? Normal : ? less than 5.7 % ? Prediabetes : ?5.7 % ??to 6.4 % Diabetes : > 6.4 % ?Use with caution in patients with abnormal hemoglobin variants as ??the half-life of red blood cells and in vivo glycation rates are ??affected. EST. AVERAGE KPWWGLN019ip/dL01/20/2025 6:47 PM [facility] LABORATORYSpecimen (Source)Anatomical Location / LateralityCollection Method / VolumeCollection TimeReceived TimeBloodVenous blood / UnknownVenipuncture / Ewuhxhe1901/20/2025 3:08 PM EDT01/20/2025 3:08 PM EDT Narrative Authorizing ProviderResult TypeResult StatusSarenny Asencio MDLAB BLOOD ORDERABLES Final ResultPerforming OrganizationAddressCity/State/ZIP CodePhone Number [facility] [address] [place] [address], * Vitamin B12 (01/20/2025 3:08 PM EDT)ComponentValueRef RangeTest MethodAnalysis TimePerformed AtPathologist SignatureVITAMIN [id number] - 914 pg/mL01/20/2025 5:57 PM [facility] LABORATORYSpecimen (Source)Anatomical Location / LateralityCollection Method / VolumeCollection TimeReceived Time BloodVenous blood / UnknownVenipuncture / Lpknors2601/20/2025 3:08 PM EDT 01/20/2025 3:08 PM EDT Narrative Authorizing ProviderResult TypeResult StatusSarenny JACOBS BLOOD ORDERABLES Final ResultPerforming OrganizationAddressCity/State/ZIP CodePhone Number [facility] [address] [place] [address], * Liver panel (01/20/2025 3:08 PM EDT)ComponentValueRef RangeTest MethodAnalysis TimePerformed AtPathologist SignatureTOTAL PROTEIN7.36.0 - 8.0 g/dL01/20/2025 5:40 PM [facility] LABORATORYALBUMIN4.53.2 - 5.3 g/dL 01/20/2025 5:40 PM [facility] LABORATORYBILIRUBIN,TOTAL0.30.3 - 1.2 mg/dL01/20/2025 5:40 PM [facility] LABORATORYALKALINE MJLNJDNOAQC22112 - 130 U/L01/20/2025 5:40 PM [facility] CAEZOBHTSWULS44<=41 U/L01/20/2025 5:40 PM [facility] HHVLNEUZVQCDT44<=31 U/L01/20/2025 5:40 PM [facility] LABORATORYBILIRUBIN,DIRECT<0.1<=0.4 mg/dL01/20/2025 5:40 PM [facility] LABORATORYSpecimen (Source)Anatomical Location / LateralityCollection Method / VolumeCollection TimeReceived TimeBloodVenous blood / Unknown Venipuncture / Mwflstj8901/20/2025 3:08 PM EDT01/20/2025 3:08 PM EDT Narrative Authorizing ProviderResult TypeResult StatusFanta JACOBS BLOOD ORDERABLES Final ResultPerforming OrganizationAddressCity/State/ZIP CodePhone Number [facility] [address] [place] [address], [place] [phone] from Last 3 Months Insurance Advance Directives [...] Teams Team MemberRelationshipSpecialtyStart DateEnd Date Kassie Pereira APRN-ANIMAL NUTRITION CONSULTANT [address] [place] [address] PCP - GeneralFamily Medicine09/21/22
--- OUTSIDE RECORDS SUMMARY | 2025-04-07 20:58 | XMS_ITS | Clinical Summary ---
Author Organization [facility] Address [address] [place] [address] Care Team Providers Care Grinding Machine Tender Name Role Phone Mary Alexis CN Unavailable [phone] Kassie Pereira NP Unavailable [phone] Allergies Active AllergyReactionsCriticalityNoted VsgnNfdvyrbxVdqecjwysqwHphiHnp23/22/2017 Medications MedicationSigDispense QuantityRefillsLast FilledStart DateEnd DateStatus escitalopram (Lexapro) 10 MG tablet Take 10 mg by mouth in the morning.5Active omeprazole (PriLOSEC) [address] capsule Take 20 mg by mouth in the morning.5Active Active Problems ProblemNoted DateDiagnosed DatePTSD (post-traumatic stress disorder)10/24/2023 Encounters DateTypeDepartmentCare FyhlNctjgyqffni26/30/2025Telephone [facility] [address] [place] [address] Mary Alexis CNM 01/14/2025 2:00 PM EDTAncillary Procedure [facility] [address] [facility] [address] [place] [address] Abnormal uterine bldzwsyt98/11/1380[place]ucuk55/11/2025Results [facility] [address] [place] [address] Uyen You MA THINPREP IMAGING PAP AND HPV DNA REFLEX HPV 16,18, US Pelvis w/ TVfrom Last 3 Months Family History Medical HistoryRelationNameCommentsBipolar disorderBrotherSchizophreniaBrother DepressionFatherTuberculosisFatherdisabledFatherDiabetesMaternal Grandfather Thyroid cancerMaternal GrandmotherDepressionMotherLupusMotherprescription pain pill abuseMotherbeen to rehabColon cancerPaternal GrandfatherRelationNameStatus CommentsBrotherpatient has 4 brothersDaughterAliveFatherAliveMaternal GrandfatherAliveMaternal GrandmotherAliveMotherAlivePaternal GrandfatherAlive Paternal GrandmotherAliveSon(2)Alive Social History Tobacco UseTypesPacks/DayYears UsedDateSmoking Tobacco: NeverSmokeless Tobacco: NeverAlcohol UseStandard Drinks/WeekCommentsNever0 (1 standard drink = 0.6 oz pure alcohol)caffeine: 2-3 cups/dayPHQ-2AnswerDate RecordedPatient Health Questionnaire-2 Cdeua953Edinburgh Depression ScaleAnswerDate RecordedEdinburgh Depression Scale Pefxy5494/18/2024The thought of harming myself has occurred to me.Never4CommentsNoSex and Gender InformationValueDate RecordedSex Assigned at BirthNot on fileLegal Sex Tjngch6007/18/2022 7:38 PM EDTGender IdentityNot on fileSexual OrientationNot on file Last Filed Vital Signs Vital SignReadingTime TakenCommentsBlood Hccgjowj603/8009 2:05 PM EDT Pulse--Temperature--Respiratory Rate--Oxygen Saturation--Inhaled Oxygen Concentration--Yynqjn346 kg (271 lb)01/05/2025 2:05 PM EZDUmoocd060.6 cm (5' 6 ) 04/11/2023 2:11 PM ESTBody Mass Index43.7404/11/2023 2:11 PM EST Plan of Treatment DateTypeDepartmentCare Team (Latest Contact Info)Thzzocftjrb76/03/2026 2:00 PM EDTOffice Visit [facility] [address] [place] [address] Mary Alexis CNM [address] [place] [address] Procedures Procedure NamePriorityDate/TimeAssociated DiagnosisCommentsUS PELVIC COMPLETE W/ LABkizups47/11/2025 2:21 PM EDT Abnormal uterine bleeding from Last 3 Months Results * US [...] BY: Alvaro Jett MD Authorizing ProviderResult TypeResult StatusValeluis fernando Alexis [facility] US PROCEDURES Final Result from Last 3 Months Insurance * Guarantor: Norma Marquez TypeRelation to PatientDate of BirthPhone Billing AddressPersonal/QdgyczDire95/24/1996 [address] [place] [facility] Address: [facility] [address] [place] [address] Care Teams Team MemberRelationshipSpecialtyStart DateEnd Date Mary Alexis CNM [address] [place], [place] [id number] Obstetrics and Gynecology10/25/22 Kassie Pereira NP [address] [place] [address] Referring PhysicianFamily Medicine12/02/23
== END 2025-04-07 20:56 | disposition home or self-care (01) ==
PROVIDERS: PCP Psychiatry & Neurology Neurology; Visit Provider Psychiatry & Neurology Neurology
DX: G47.33 Obstructive sleep apnea (adult) (pediatric) (principal); G47.11 Idiopathic hypersomnia with long sleep time; F51.01 Primary insomnia
CPT/HCPCS: 95811